=== PATIENT | male | born 1995 | race Caucasian/White ===

== ENCOUNTER 2020-05-16 17:47 | Emergency (ER) | payer OTHER, SELFPAY ==
--- NOTE | ~2020-05-16 | XR_ITS ---
XR finger 3rd RT min 2V 05/16/2020 18:16 Indication: Right third finger pain. Dog bite. Procedure: 4 views right third finger Comparison: No prior studies for comparison. Findings: There are small avulsion fracture fragments along the dorsal aspect of the distal interphal angeal joint. There is associated soft tissue swelling. Impression: 1: Avulsion fracture fragments dorsal aspect of the third distal interphalangeal joint, donor site no t identified. Reviewed, dictated and finalized at location A. T DAYCARE COORDINATOR Impression: 1: Avulsion fracture fragments dorsal aspect of the third distal interphalangea l joint, donor site not identified.
[2020-05-16 18:05] VITALS: BP 130/70; PULSE 94; RESP 18; TEMP 36.6; O2SAT 100
[2020-05-16 18:07] VITALS: BP 130/70; PULSE 94; RESP 18; TEMP 36.6; O2SAT 100
--- NOTE | 2020-05-16 18:35 | ED.UPPEXIN ---
HPI - Extremity Injury (Upper) General Chief Complaint: Extremity Injury, Upper Stated Complaint: finger inj Time Seen by Provider: 05/16/20 18:09 Source: patient and RN notes reviewed Mode of arrival: ambulatory Limitations: no limitations History of Present Illness HPI narrative: Patient presents today with an injury to his right third finger. He was giving his dog a treat when the treat slipped and the dog accidentally bit his finger approximately 1.5 hours prior to exam. Patient does report some numbness and tingling to the tip of the finger. Currently rates his pain 9/10. He is up-to-date on his tetanus vaccine. He has tried no medication for symptoms prior to arrival. States he is unable to fully straighten out his finger. Dog is up-to-date on vaccines. MD complaint: injury to: finger Related Data Allergies Allergy/AdvReac Type Severity Reaction Status Date / Time No Known Allergies Allergy Unknown Unverified 05/16/20 17:53 Review of Systems Review of Systems: Narrative: CONSTITUTIONAL: Denies body aches, fever, chills, or sweats. EYES: Denies visual changes, redness, or discharge. ENT: Denies rhinorrhea, congestion, sore throat, or otalgia. CARDIOVASCULAR: Denies chest pain, palpitations, or edema. RESPIRATORY: Denies cough or dyspnea. GASTROINTESTINAL: Denies abdominal pain, nausea, vomiting, or diarrhea. GENITOURINARY: Denies dysuria or hematuria. SKIN: Denies rash, itching, or wounds. MUSCULOSKELETAL: Denies back pain, or myalgia. + Right third finger injury NEUROLOGIC: Denies headache, numbness, tingling, or weakness. PSYCH: Denies depression or anxiety. PMFSH Comments At time of signature, I have reviewed and agree with nursing past medical, surgical, social and family history unless otherwise noted. Please see nursing chart for further information. There is no relevant family history pertinent to the presenting complaint Exam Narrative: Exam Narrative: GENERAL: Well-appearing, well-nourished, and in no acute distress. HEAD: Normocephalic, atraumatic. EYES: EOMI. No redness or drainage. Conjunctivae normal. ENT: Mucous membranes pink and moist. NECK: Normal AROM. CHEST: No respiratory distress. EXTREMITIES: Right third finger: 1.5 cm flap laceration to the dorsum of the right 3rd finger at the DIP. There is also a small puncture wound at the palmar aspect of the DIP. Patient is unable to extend the finger at the DIP. Distal sensation is slightly diminished to the affected finger. He is able to flex the finger. Capillary refill normal. SKIN: Warm, dry, no rash. Capillary refill normal. Normal skin turgor. NEURO: No focal deficits. Alert and oriented x3. Gait steady. PSYCH: Normal affect. No signs of depression or anxiety. Course Vital Signs Vital signs: Vital Signs Temperature 97.9 F 05/16/20 18:05 Pulse Rate 94 05/16/20 18:05 Respiratory Rate 18 05/16/20 18:05 Blood Pressure 130/70 05/16/20 18:05 Pulse Oximetry 100 05/16/20 18:05 Temperature 97.9 F 05/16/20 18:07 Pulse Rate 94 05/16/20 18:07 Respiratory Rate 18 05/16/20 18:07 Blood Pressure 130/70 05/16/20 18:07 Pulse Oximetry 100 05/16/20 18:07 Reviewed. Pt has been instructed to follow up with his PCP regarding his elevated blood pressure today. Procedures Orthopedic Splinting/Casting Injury #1: Splinting/Casting Date: 05/16/20 Splinting/Casting Time: 18:41 Side: right Upper Extremity Injury Location: finger Upper Extremity Immobilizer: aluminum form splint Splint: prefabricated Pre-Procedure Neuro Vascular Exam: normal (baseline upon arrival) Post-Procedure Neuro Vascular Exam: normal (baseline upon arrival) Additional Comments: wound dressed by RN prior to splinting. MDM - Extremity Injury (Upper) Differential Diagnosis Differential diagnosis: Likely other (Finger fracture, finger sprain, laceration, tendon laceration, puncture wou
== END 2020-05-16 18:52 | disposition home or self-care (01) ==
PROVIDERS: Emergency Provider Nurse Practitioner
DX: S61.212A Laceration without foreign body of right middle finger without damage to nail, initial encounter (principal); W54.0XXA Bitten by dog, initial encounter; S61.232A Puncture wound without foreign body of right middle finger without damage to nail, initial encounter; S62.632A Displaced fracture of distal phalanx of right middle finger, initial encounter for closed fracture
CPT/HCPCS: 29130; 73140; 99214; G0463

== ENCOUNTER 2020-06-29 17:54 | Emergency (ER) | payer OTHER, SELFPAY ==
--- NOTE | 2020-06-29 18:03 | ED.URI ---
HPI - URI/Sore Throat General Chief Complaint: Upper Respiratory Infection Stated Complaint: poss sinus infection Time Seen by Provider: 06/29/20 18:05 Source: patient and RN notes reviewed Mode of arrival: ambulatory Limitations: no limitations History of Present Illness HPI Narrative: 25-year-old male presents with concern for 3-week history of sinus congestion, drainage, headache. Reports she has been using [id number] nasal spray with decreasing amount of relief. He denies fever, cough, shortness of breath, sore throat, loss of taste and smell, known sick contacts. MD elicited complaint: nasal congestion Related Data Allergies Allergy/AdvReac Type Severity Reaction Status Date / Time No Known Allergies Allergy Unknown Verified 06/29/20 18:03 Review of Systems Review of Systems: Narrative: CONSTITUTIONAL: Denies malaise, chills, sweats, or fever. EYES: Denies visual changes, redness, or discharge. ENT: Reports rhinorrhea, congestion, sinus pain. Denies otalgia and sore throat. CARDIOVASCULAR: Denies chest pain, palpitations, or edema. RESPIRATORY: Denies cough or dyspnea. GASTROINTESTINAL: Denies abdominal pain, nausea, vomiting, diarrhea SKIN: Denies rash or itching. MUSCULOSKELETAL: Denies myalgia. NEUROLOGIC: Reports headache. All systems reviewed & are unremarkable except as noted in HPI and below PMFSH Social History Social History Gender identity (if verbalized by the patient): Male Comments At time of signature, agree with nursing past medical, surgical, social and family history. There is no relevant family history pertinent to the presenting complaint Exam Narrative: Exam Narrative: GENERAL: Well-appearing, well-nourished, and in no acute distress. HEAD: Normocephalic EYES: PERRLA, conjunctivae clear ENT: Nares clear, turbinates edematous and erythematous, purulent discharge, sinus tenderness. Mucous membranes moist. TM pearly bourgeois with dull light reflex bilaterally; no tragal tenderness. Oropharynx not erythematous without lesions. Tonsils not enlarged and without exudate, no drooling, no hoarseness, no trismus, uvula midline. NECK: Supple. No lymphadenopathy CHEST: Clear to auscultation, breath sounds equal. No wheezing, rhonchi, rales, or stridor. No respiratory distress, speaks in full sentences. HEART: Regular rate and rhythm. No murmur heard. SKIN: Warm, dry, no rash. NEURO: Alert and oriented x3. PSYCH: Normal mood and affect Course Course Emergency Course: Patient is aware of diagnosis, understands and agrees to treatment plan. Anticipatory guidance given. Patient agrees to follow-up as directed and is aware of reasons to seek care at the emergency department. Portions of this record may have been created with voice recognition software Vital Signs Vital signs: Vital Signs Temperature 97.3 F L 06/29/20 18:11 Pulse Rate 80 06/29/20 18:11 Respiratory Rate 16 06/29/20 18:11 Blood Pressure 119/67 06/29/20 18:11 Pulse Oximetry 98 06/29/20 18:11 Temperature 97.3 F L 06/29/20 18:11 Pulse Rate 80 06/29/20 18:11 Respiratory Rate 16 06/29/20 18:11 Blood Pressure 119/67 06/29/20 18:11 Pulse Oximetry 98 06/29/20 18:11 Reviewed. MDM - URI/Sore Throat MDM Narrative Medical decision making narrative: Differential diagnosis considered: Blanchard virus, strep pharyngitis, allergic rhinitis, upper respiratory tract infection, sinusitis, rhinosinusitis, nasopharyngitis. viral pharyngitis, otitis media, otitis externa, pneumonia, bronchitis, viral cough syndrome, viral syndrome, and influenza. Exam findings show no acute concerns or changes; patient is non-toxic appearing and is in no distress. Patient is appropriate for outpatient treatment and follow-up. Critical Care Time Critical Care Time Critical Care Time: No Discharge Plan Discharge Clinical Impression: Acute bacterial sinusitis Patient Disposition: Home, Self-Care Condition: Stable Instructions:
[2020-06-29 18:11] VITALS: BP 119/67; PULSE 80; RESP 16; TEMP 36.3; O2SAT 98
== END 2020-06-29 18:20 | disposition home or self-care (01) ==
PROVIDERS: Emergency Provider Nurse Practitioner
DX: J01.90 Acute sinusitis, unspecified (principal); F17.200 Nicotine dependence, unspecified, uncomplicated
CPT/HCPCS: 99213; G0463

== ENCOUNTER 2020-07-07 11:00 | Outpatient (CLI) | payer OTHER, SELFPAY ==
--- NOTE | ~2020-07-07 | XR_ITS ---
XR finger 3rd RT min 2V DATE: 07/07/2020 11:24 INDICATION: Osteomyelitis of third digit. Dog bite TECHNIQUE: 4 views COMPARISON: 05/16/2020 right third digit FINDINGS: There is soft tissue swelling of the third digit distally, centered at the distal interphal angeal joint. There is evidence of some bone destruction of the posteromedial aspect of the head of t he middle phalanx which may be consistent with osteomyelitis. There is flexion deformity at the dista l interphalangeal joint. IMPRESSION: Soft tissue swelling of the distal third digit and evidence of some focal bone destructio n of the posterior medial aspect of the head of the middle phalanx, which may indicate osteomyelitis. Flexion deformity at the distal interphalangeal joint Reviewed, dictated and finalized at location B. NIC SECTION TECHNICAL LEAD IMPRESSION: Soft tissue swelling of the distal third digit and evidence of some focal bone destruction of the posterior medial aspect of the head of the middl e phalanx, which may indicate osteomyelitis. Flexion deformity at the distal interphalangeal joint
== END 2020-07-07 11:01 | disposition home or self-care (01) ==
PROVIDERS: Visit Provider Plastic Surgery
DX: M86.141 Other acute osteomyelitis, right hand (principal); M79.89 Other specified soft tissue disorders; M21.241 Flexion deformity, right finger joints
CPT/HCPCS: 73140

== ENCOUNTER 2020-08-10 17:21 | Emergency (ER) | payer OTHER, SELFPAY ==
[2020-08-10 17:42] VITALS: BP 117/50; PULSE 87; RESP 16; TEMP 35.6; O2SAT 98
--- NOTE | 2020-08-10 17:43 | ED.URI ---
HPI - URI/Sore Throat General Chief Complaint: Upper Respiratory Infection Stated Complaint: sinus infection Time Seen by Provider: 08/10/20 17:43 Source: patient and RN notes reviewed History of Present Illness HPI Narrative: Patient is a 25-year-old male who presents the urgent care with complaints of head congestion/nasal congestion and sore throat. Patient also reports of a headache. States that he has been using ibuprofen, Sudafed, Flonase. Reports of using the Flonase multiple times throughout the day. Reports that his nasal congestion enhancing over the last 24 hours. Patient states symptoms started approximately 2 to 3 days ago. Denies of any known exposure to strep or Covid. No other acute complaints. No acute distress noted. Patient aware of the plan of care. Some parts of this dictation were generated by voice recognition software and may contain typographical and/or grammatical inaccuracies. Related Data Allergies Allergy/AdvReac Type Severity Reaction Status Date / Time No Known Allergies Allergy Unknown Verified 08/10/20 17:36 Review of Systems Review of Systems: Narrative: CONSTITUTIONAL: Denies fever, chills, or sweats. EYES: Denies visual changes, redness, or discharge. ENT: Reports of sore throat, nasal congestion, head congestion CARDIOVASCULAR: Denies chest pain, palpitations, or edema. RESPIRATORY: Denies cough or dyspnea. GASTROINTESTINAL: Denies abdominal pain, nausea, vomiting, or diarrhea. GENITOURINARY: Denies dysuria or hematuria. SKIN: Denies rash or itching. MUSCULOSKELETAL: Denies back pain, joint pain, or myalgia. NEUROLOGIC: Reports of headache All other systems reviewed are negative, except as documented in HPI. PMFSH Social History Social History Gender identity (if verbalized by the patient): Male Comments At the time of my signature, I reviewed and agree with the nursing past medical, surgical, social, and family history. There is no relevant family history pertinent to the patient complaint. Exam Narrative: Exam Narrative: GENERAL: This is a well-nourished, well-developed patient, in no apparent distress. HEAD: normocephalic, atraumatic. EYES: PERRL. Sclera clear/white. Vision is grossly intact. EARS: External ears normal, auditory canals clear and without drainage, TMs normal without perforation. Hearing grossly intact. NOSE: External nose normal with no obvious nasal discharge, moderate erythema noted to bilateral nares with clear to yellow rhinorrhea THROAT: Mucous membranes moist, mild erythema noted posterior oropharynx without exudate or ulceration. Notable what appears to be plant leaf to the roof of the mouth and on the tongue (patient reports that he smokes Dealt 8 which is a form of pot ) NECK: Neck supple, non-tender without lymphadenopathy CARDIOVASCULAR: Regular rate and rhythm without murmurs, gallops, or rubs. RESPIRATORY: Clear to auscultation. Breath sounds equal bilaterally. No wheezes, rales, or rhonchi. SKIN: warm, intact with no suspicious lesions or rash, good texture and turgor. NEURO: awake, alert, and oriented to person, place and time. There were no obvious focal neurologic abnormalities. EXTREMITIES: No clubbing, cyanosis, or edema. Course Vital Signs Vital signs: Vital Signs Temperature 96.1 F L 08/10/20 17:42 Pulse Rate 87 08/10/20 17:42 Respiratory Rate 16 08/10/20 17:42 Blood Pressure 117/50 L 08/10/20 17:42 Pulse Oximetry 98 08/10/20 17:42 Temperature 96.1 F L 08/10/20 17:42 Pulse Rate 87 08/10/20 17:42 Respiratory Rate 16 08/10/20 17:42 Blood Pressure 117/50 L 08/10/20 17:42 Pulse Oximetry 98 08/10/20 17:42 Reviewed MDM - URI/Sore Throat MDM Narrative Medical decision making narrative: Reviewed lab results with the patient. He is aware that strep swab was negative. Educated patient on culture we will call within 72 hours if culture is positive and antibiotics are necessary. Advised the patient to comp
== END 2020-08-10 18:07 | disposition home or self-care (01) ==
PROVIDERS: Emergency Provider Nurse Practitioner Family
DX: J32.9 Chronic sinusitis, unspecified (principal); J02.9 Acute pharyngitis, unspecified
CPT/HCPCS: 87081; 87880; 99213; G0463

== ENCOUNTER 2020-08-23 13:52 | Outpatient (CLI) | payer OTHER, SELFPAY ==
--- NOTE | ~2020-08-23 | XR_ITS ---
EXAMINATION: XR finger 3rd RT min 2V DATE: 08/23/2020 14:07 INDICATION: Osteomyelitis at the third distal interphalangeal joint post dogbite TECHNIQUE: Dorsal palmar, lateral and 2 oblique views of the right third digit were obtained COMPARISON: Right third digit radiographs dated 07/07/2020 and 05/16/2020 FINDINGS: Again seen is prominent soft tissue swelling dorsal to the third distal interphalangeal joint. There is a persistent mallet finger deformity of the third digit with flexion at the distal interphalangeal joint. There is joint space narrowing at the distal interphalangeal joint which is new since 020 an with slight progression since 07/07/2020 consistent with septic arthritis. There is increased l ucency at the dorsal aspect of the head of the middle phalanx and more subtly at the dorsal aspect of the base of the distal phalanx consistent with associated osteomyelitis. Remainder of the visualized bones of the right hand appear normal with normal alignment and joint spaces. IMPRESSION: 1. Septic arthritis at the third distal interphalangeal joint with focal osteolysis consistent with o steomyelitis at the dorsal aspect of the base of the distal phalanx and head of the middle phalanx. 2. Persistent mallet finger deformity suggesting disruption of the extensor tendon. Reviewed, dictated and finalized at location B. IMPRESSION: 1. Septic arthritis at the third distal interphalangeal joint with focal osteol ysis consistent with osteomyelitis at the dorsal aspect of the base of the dist al phalanx and head of the middle phalanx. 2. Persistent mallet finger deformity suggesting disruption of the extensor ten don.
== END 2020-08-23 13:53 | disposition home or self-care (01) ==
PROVIDERS: Visit Provider Plastic Surgery
DX: M86.141 Other acute osteomyelitis, right hand (principal)
CPT/HCPCS: 73140

== ENCOUNTER 2020-10-01 15:09 | Outpatient (CLI) | payer OTHER, SELFPAY ==
--- NOTE | ~2020-10-01 | XR_ITS ---
XR finger 3rd RT min 2V DATE: 10/01/2020 15:26 INDICATION: Osteomyelitis at distal interphalangeal joint; but by dog in April TECHNIQUE: 4 views COMPARISON: 08/23/2020, 07/07/2020 and 05/16/2020 right third digit FINDINGS: Again noted is joint space narrowing at the distal interphalangeal joint with erosions at t he dorsal aspect of the head of the middle phalanx and base of the distal phalanx consistent with adj acent osteomyelitis. Again noted is flexion deformity at the distal interphalangeal joint. There is m ild surrounding soft tissue swelling. IMPRESSION: Septic arthritis and osteomyelitis at the distal interphalangeal joint and mallet deformi ty again noted Reviewed, dictated and finalized at location A. IMPRESSION: Septic arthritis and osteomyelitis at the distal interphalangeal rissa int and mallet deformity again noted
== END 2020-10-01 15:10 | disposition home or self-care (01) ==
LOC: ANHIMG 15:14
PROVIDERS: Visit Provider Plastic Surgery
DX: M86.141 Other acute osteomyelitis, right hand (principal); M00.9 Pyogenic arthritis, unspecified
CPT/HCPCS: 73140

== ENCOUNTER 2020-12-07 13:18 | Emergency (ER) | payer OTHER, SELFPAY ==
[2020-12-07 13:28] VITALS: BP 111/65; PULSE 92; RESP 16; TEMP 36.4; O2SAT 100
--- NOTE | 2020-12-07 13:52 | ED.URI ---
HPI - URI/Sore Throat General Chief Complaint: Upper Respiratory Infection Stated Complaint: Sinus Problems Time Seen by Provider: 12/07/20 13:45 Source: patient and RN notes reviewed Mode of arrival: ambulatory Limitations: no limitations History of Present Illness HPI Narrative: 25-year-old male presents concern for worse sinus congestion. Reports chronic history of problems with his sinuses. Reports symptoms have been ongoing for more than a month, have worsened in the last several days. He reports sinus pain, pressure, drainage. He denies cough, shortness of breath, bodies, chills, sweats. MD elicited complaint: nasal congestion Related Data Allergies Allergy/AdvReac Type Severity Reaction Status Date / Time acetaminophen [From Tylenol] AdvReac Abdominal Verified 08/10/20 18:02 Pain Review of Systems Review of Systems: Narrative: CONSTITUTIONAL: Denies malaise, chills, sweats, or fever. EYES: Denies visual changes, redness, or discharge. ENT: Reports rhinorrhea, congestion, sinus pain. Denies otalgia and sore throat. CARDIOVASCULAR: Denies chest pain, palpitations, or edema. RESPIRATORY: Denies cough or dyspnea. GASTROINTESTINAL: Denies abdominal pain, nausea, vomiting, diarrhea SKIN: Denies rash or itching. MUSCULOSKELETAL: Denies myalgia. NEUROLOGIC: Denies headache. All systems reviewed & are unremarkable except as noted in HPI and below PMFSH Social History Social History Gender identity (if verbalized by the patient): Male Comments At time of signature, agree with nursing past medical, surgical, social and family history. There is no relevant family history pertinent to the presenting complaint Exam Narrative: Exam Narrative: GENERAL: Well-appearing, well-nourished, and in no acute distress. HEAD: Normocephalic EYES: PERRLA, conjunctivae clear ENT: Nares clear, turbinates edematous and erythematous, purulent discharge, sinus tenderness. Mucous membranes moist. TM pearly bourgeois with dull light reflex bilaterally; no tragal tenderness. Oropharynx not erythematous without lesions. Tonsils not enlarged and without exudate, no drooling, no hoarseness, no trismus, uvula midline. NECK: Supple. No lymphadenopathy CHEST: Clear to auscultation, breath sounds equal. No wheezing, rhonchi, rales, or stridor. No respiratory distress, speaks in full sentences. HEART: Regular rate and rhythm. No murmur heard. SKIN: Warm, dry, no rash. NEURO: Alert and oriented x3. PSYCH: Normal mood and affect Course Course Emergency Course: Patient is aware of diagnosis, understands and agrees to treatment plan. Anticipatory guidance given. Patient agrees to follow-up as directed and is aware of reasons to seek care at the emergency department. Portions of this record may have been created with voice recognition software Vital Signs Vital signs: Vital Signs Temperature 97.5 F L 12/07/20 13:28 Pulse Rate 92 12/07/20 13:28 Respiratory Rate 16 12/07/20 13:28 Blood Pressure 111/65 12/07/20 13:28 Pulse Oximetry 100 12/07/20 13:28 Temperature 97.5 F L 12/07/20 13:28 Pulse Rate 92 12/07/20 13:28 Respiratory Rate 16 12/07/20 13:28 Blood Pressure 111/65 12/07/20 13:28 Pulse Oximetry 100 12/07/20 13:28 Reviewed. MDM - URI/Sore Throat MDM Narrative Medical decision making narrative: Differential diagnosis considered: Blanchard virus, strep pharyngitis, allergic rhinitis, upper respiratory tract infection, sinusitis, rhinosinusitis, nasopharyngitis. viral pharyngitis, otitis media, otitis externa, pneumonia, bronchitis, viral cough syndrome, viral syndrome, and influenza. Exam findings show no acute concerns or changes; patient is non-toxic appearing and is in no distress. Patient is appropriate for outpatient treatment and follow-up. Critical Care Time Critical Care Time Critical Care Time: No Discharge Plan Discharge Clinical Impression: Chronic sinusitis Qualifiers: Sinusitis location: unspecifi
== END 2020-12-07 14:08 | disposition home or self-care (01) ==
PROVIDERS: Emergency Provider Nurse Practitioner
DX: J32.9 Chronic sinusitis, unspecified (principal); F41.9 Anxiety disorder, unspecified
CPT/HCPCS: 99213; G0463

== ENCOUNTER 2020-12-14 12:02 | Emergency (ER) | payer OTHER, SELFPAY ==
[2020-12-14 12:11] VITALS: BP 132/68; PULSE 87; RESP 16; TEMP 36.3; O2SAT 99
--- NOTE | 2020-12-14 12:50 | ED.GENADULT ---
HPI - General Adult General Chief complaint: Upper Respiratory Infection Stated complaint: SORE THROAT Time Seen by Provider: 12/14/20 12:38 Source: patient and RN notes reviewed Mode of arrival: ambulatory Limitations: no limitations History of Present Illness HPI narrative: Patient presents today requesting a COVID-19 test. His girlfriend, whom he lives with, was diagnosed with COVID-19 3 days ago. Patient went to [facility] today for rapid Covid test, which was negative. He believes that this was a false negative and wanted to come in to [facility] today to get a repeat rapid test. Patient is currently on doxycycline and prednisone for presumed sinus infection that was prescribed by the nurse practitioner from [facility] on 12/07/2020. States those symptoms have been improving. He and his girlfriend have not been vaccinated against COVID-19. complaint: Requesting COVID-19 test Related Data Allergies Allergy/AdvReac Type Severity Reaction Status Date / Time acetaminophen [From Tylenol] AdvReac Abdominal Verified 12/14/20 12:27 Pain Review of Systems Review of Systems: Narrative: CONSTITUTIONAL: Denies body aches, fever, chills, or sweats. EYES: Denies visual changes, redness, or discharge. ENT: Denies rhinorrhea, congestion, sore throat, or otalgia. CARDIOVASCULAR: Denies chest pain, palpitations, or edema. RESPIRATORY: Denies cough or dyspnea. GASTROINTESTINAL: Denies abdominal pain, nausea, vomiting, or diarrhea. GENITOURINARY: Denies dysuria or hematuria. SKIN: Denies rash, itching, or wounds. MUSCULOSKELETAL: Denies back pain, joint pain, or myalgia. NEUROLOGIC: Denies headache, numbness, tingling, or weakness. PSYCH: Denies depression or anxiety. PMFSH Social History Social History Gender identity (if verbalized by the patient): Male Comments At time of signature, I have reviewed and agree with nursing past medical, surgical, social and family history unless otherwise noted. Please see nursing chart for further information. There is no relevant family history pertinent to the presenting complaint Exam Narrative: Exam Narrative: GENERAL: Well-appearing, well-nourished, and in no acute distress. HEAD: Normocephalic, atraumatic. EYES: EOMI. No redness or drainage. Conjunctivae normal. ENT: Mucous membranes pink and moist. Nares clear. No rhinorrhea. TMs normal bilaterally. Throat normal. Uvula midline. NECK: Normal AROM. Supple. No lymphadenopathy. CHEST: No respiratory distress. Clear to auscultation. HEART: Regular rate and rhythm. No murmur appreciated. Normal peripheral pulses. EXTREMITIES: Normal range of motion. No edema. SKIN: Warm, dry, no rash. Capillary refill normal. Normal skin turgor. NEURO: No focal deficits. Alert and oriented x3. Gait steady. PSYCH: Normal affect. No signs of depression or anxiety. Course Course Emergency Course: Discussed quarantine guidelines with patient. He is concerned that he needs a note for work to quarantine. Will provide for him. Vital Signs Vital signs: Vital Signs Temperature 97.3 F L 12/14/20 12:11 Pulse Rate 87 12/14/20 12:11 Respiratory Rate 16 12/14/20 12:11 Blood Pressure 132/68 12/14/20 12:11 Pulse Oximetry 99 12/14/20 12:11 Temperature 97.3 F L 12/14/20 12:11 Pulse Rate 87 12/14/20 12:11 Respiratory Rate 16 12/14/20 12:11 Blood Pressure 132/68 12/14/20 12:11 Pulse Oximetry 99 12/14/20 12:11 Reviewed. Pt has been instructed to follow up with his PCP regarding his elevated blood pressure today. Medical Decision Making Differential Diagnosis Differential Diagnosis: COVID-19, viral syndrome, requesting work note Vital Signs Vital Signs: Vital Signs Temperature 97.3 F L 12/14/20 12:11 Pulse Rate 87 12/14/20 12:11 Respiratory Rate 16 12/14/20 12:11 Blood Pressure 132/68 12/14/20 12:11 Pulse Oximetry 99 12/14/20 12:11 Temperature 97.3 F L 12/14/20 12:11 Pulse Rate 87 /
== END 2020-12-14 15:00 | disposition home or self-care (01) ==
PROVIDERS: Emergency Provider Nurse Practitioner
DX: Z20.822 Contact with and (suspected) exposure to COVID-19 (principal); F17.200 Nicotine dependence, unspecified, uncomplicated
CPT/HCPCS: 99211; G0463

== ENCOUNTER 2021-01-03 08:29 | Emergency (ER) | payer OTHER, SELFPAY ==
--- NOTE | ~2021-01-03 | CT_ITS ---
EXAMINATION: CT brain wo con DATE: 01/03/2021 09:34 INDICATION: Head injury. TECHNIQUE: Computed tomography (CT) of the head was performed without intravenous contrast. The mA wa s adjusted according to patient size. Iterative reconstruction technique was employed. The dose-lengt h product was 605.33 mGy-cm. COMPARISON: Head CT 07/04/2014 FINDINGS: There is no intracranial hemorrhage, acute infarction, or abnormal intracranial mass lesion . The ventricles are normal in size. Cavum septum pellucidum is noted. The orbits are normal. There i s mucosal thickening in the paranasal sinuses. The mastoid air cells are normal. There is posterior s calp soft tissue swelling. IMPRESSION: 1. Normal brain. Reviewed, dictated and finalized at location B. IMPRESSION: 1. Normal brain.
--- NOTE | ~2021-01-03 | CT_ITS ---
EXAMINATION: CT cervical spine wo con DATE: 01/03/2021 09:34 INDICATION: Neck injury. Neck pain. TECHNIQUE: Computed tomography (CT) of the cervical spine was performed without intravenous contrast. Automated exposure control and iterative reconstruction technique were employed. The dose-length pro duct was 399.13 mGy-cm. COMPARISON: None FINDINGS: There is mild scarring at the lung apices. Bone alignment is normal. Vertebral body heights and intervertebral disc heights are normal. The following disc levels are specifically discussed: C2-C3: There is no uncovertebral joint osteoarthritis. There is mild bilateral facet joint osteoarthr itis. There is no neural foraminal stenosis. There is no central canal stenosis. C3-C4: There is no uncovertebral joint osteoarthritis. There is mild bilateral facet joint osteoarthr itis. There is no neural foraminal stenosis. There is no central canal stenosis. C4-C5: There is no uncovertebral joint osteoarthritis. There is no facet joint osteoarthritis. There is no neural foraminal stenosis. There is no central canal stenosis. C5-C6: There is no uncovertebral joint osteoarthritis. There is no facet joint osteoarthritis. There is no neural foraminal stenosis. There is no central canal stenosis. C6-C7: There is no uncovertebral joint osteoarthritis. There is mild right facet joint osteoarthritis . There is no neural foraminal stenosis. There is no central canal stenosis. C7-T1: There is no uncovertebral joint osteoarthritis. There is moderate bilateral facet joint osteoa rthritis. There is no neural foraminal stenosis. There is no central canal stenosis. IMPRESSION: 1. No fracture. 2. Multilevel facet joint osteoarthritis. Reviewed, dictated and finalized at location B.
--- NOTE | ~2021-01-03 | XR_ITS ---
EXAMINATION: XR lumbar spine 2-3V DATE: 01/03/2021 09:52 INDICATION: Low back injury and pain. TECHNIQUE: 3 views of lumbar spine were obtained. COMPARISON: None. FINDINGS: There is 14 degrees dextroscoliosis of lumbar spine. Vertebral body heights and interverteb ral disc heights are normal. The facet joints are unremarkable. IMPRESSION: 1. Lumbar dextroscoliosis. Reviewed, dictated and finalized at location B. IMPRESSION: 1. Lumbar dextroscoliosis.
--- NOTE | ~2021-01-03 | XR_ITS ---
EXAMINATION: XR thoracic spine 3V DATE: 01/03/2021 09:51 INDICATION: Mid back injury and pain. TECHNIQUE: 3 views of thoracic spine on 4 radiographs were obtained. COMPARISON: None. FINDINGS: Bone alignment is normal. Vertebral body heights and intervertebral disc heights are normal . IMPRESSION: 1. No fracture. Reviewed, dictated and finalized at location B. IMPRESSION: 1. No fracture.
--- NOTE | ~2021-01-03 | XR_ITS ---
EXAMINATION: XR chest 2V DATE: 01/03/2021 09:51 INDICATION: Chest injury. TECHNIQUE: Frontal and lateral views of the chest were obtained. COMPARISON: Chest 2 views 05/06/2013 FINDINGS: The chest demonstrates clear lungs without pneumonia, pleural effusion, or pneumothorax. Th e heart size is normal. IMPRESSION: 1. No acute cardiopulmonary disease. Reviewed, dictated and finalized at location B.
--- NOTE | ~2021-01-03 | XR_ITS ---
EXAMINATION: XR pelvis 1-2V DATE: 01/03/2021 09:50 INDICATION: Pelvis injury. TECHNIQUE: An anteroposterior view of the pelvis was obtained. COMPARISON: None. FINDINGS: Bone alignment is normal. No fracture. There is mild osteoarthritis of the hips. IMPRESSION: 1. Mild osteoarthritis of the hips. Reviewed, dictated and finalized at location B.
[2021-01-03 08:35] VITALS: BP 103/65; PULSE 80; RESP 16; TEMP 37.2; O2SAT 97
--- NOTE | 2021-01-03 09:06 | ED.FALL ---
HPI - Fall General Chief Complaint: Fall Stated Complaint: skateboard accident, head injury Time Seen by Provider: 01/03/21 08:56 Source: patient, family and RN notes reviewed Mode of arrival: ambulatory Limitations: no limitations History of Present Illness HPI Narrative: Patient is 25 years old white male came from home with his mom complaining of occipital pain and tailbone pain started yesterday around 12 noon after falling off his skateboard. No helmet. No loss of consciousness, woke up this morning with pain all over mainly at the occipital area and the tailbone area. Patient denies chest pain or abdominal pain. Also denies any fever, chills, nausea, vomiting Related Data Home Medications Medication Instructions Recorded Confirmed No Home Medications 01/03/21 01/03/21 Allergies Allergy/AdvReac Type Severity Reaction Status Date / Time No Known Allergies Allergy Verified 01/03/21 08:31 Review of Systems Review of Systems: CONSTITUTIONAL: Denies fever, chills, or sweats. EYES: Denies visual changes, redness, or discharge. ENT: Denies rhinorrhea, congestion, sore throat, or otalgia. CARDIOVASCULAR: Denies chest pain, palpitations, or edema. RESPIRATORY: Denies cough or dyspnea. GASTROINTESTINAL: Denies abdominal pain, nausea, vomiting, or diarrhea. GENITOURINARY: Denies dysuria or hematuria. SKIN: Denies rash or itching. MUSCULOSKELETAL: Denies back pain, joint pain, or myalgia. NEUROLOGIC: Denies headache, numbness, or weakness. PSYCHIATRIC: Denies anxiety or depression. [facility] Social History Social History Gender identity (if verbalized by the patient): Male Exam Narrative: General appearance: Well-developed, well-nourished, looks in pain Skin: Normal color Head: Normocephalic, occipital tenderness with abrasion. No active bleeding, no hematoma Eyes: Clear conjunctiva ENT: Oropharynx normal, ears normal, nose normal Neck: Slight limited range of motion, diffuse tenderness Chest and respiratory: Airway patent, no respiratory distress, no accessory muscle use Heart: Regular rate/rhythm Abdomen: Soft, nontender, no organomegaly, quiet bowel sounds Vascular: Normal peripheral pulses, normal capillary refill. Musculoskeletal: Limited range of motion all over including upper and lower extremities, back, neck. Neurologic: Alert and oriented ?3, [employer] BLASTING is normal as tested, no gross motor deficit Course Course Emergency Course: Stable Vital Signs Vital signs: Vital Signs Temperature 37.2 C 01/03/21 08:35 Pulse Rate 80 01/03/21 08:35 Respiratory Rate 16 01/03/21 08:35 Blood Pressure 103/65 01/03/21 08:35 Pulse Oximetry 97 01/03/21 08:35 Temperature 37.2 C 01/03/21 08:35 Pulse Rate 80 01/03/21 08:35 Respiratory Rate 16 01/03/21 08:35 Blood Pressure 103/65 01/03/21 08:35 Pulse Oximetry 97 01/03/21 08:35 MDM - Fall MDM Narrative Medical decision making narrative: Patient presents with skateboard injury [address] head, cervical spine, x-ray thoracic lumbar pelvis and chest x-ray ordered. Ibuprofen 800 mg and [place] 5/325 mg ordered. Further plan Differential Diagnosis Differential diagnosis: Likely compression fracture, concussion without loss of consciousness and other (Skull fracture, vertebral fracture) Imaging Data Radiologist's impression: Impressions Head CT 01/03/21 09:34 IMPRESSION: 1. Normal brain. Cervical Spine CT 01/03/21 09:35 IMPRESSION: 1. No fracture. 2. Multilevel facet joint osteoarthritis. Pelvis X-Ray 01/03/21 09:54 IMPRESSION: 1. Mild osteoarthritis of the hips. Thoracic Spine X-
[2021-01-03] MEDS: HYDROcodone/acetaminophen (*CRX) 5-325 MG TABLET 1 TAB PO (09:21)
[2021-01-03] MEDS: IBUPROFEN 400 MG TABLET 800 MG PO (09:22)
--- NOTE | 2021-01-03 10:29 | PC.NURSE ---
pt parent out to nurse's station, my son is in pain. whatever you gave him isn't helping. EDP made aware.
--- NOTE | 2021-01-03 11:00 | PC.NURSE ---
pt continues to c/o pain 02/27. overheard pt tell family that he needs some dilaudid for pain.
[2021-01-03 11:27] VITALS: RESP 16
== END 2021-01-03 11:27 | disposition home or self-care (01) ==
PROVIDERS: Emergency Provider Emergency Medicine
DX: S09.90XA Unspecified injury of head, initial encounter (principal); S30.0XXA Contusion of lower back and pelvis, initial encounter; M47.812 Spondylosis without myelopathy or radiculopathy, cervical region; M16.0 Bilateral primary osteoarthritis of hip; V00.131A Fall from skateboard, initial encounter; Y93.51 Activity, roller skating (inline) and skateboarding
CPT/HCPCS: 70450; 71046; 72072; 72100; 72125; 72170; 99284; A9270

== ENCOUNTER 2021-03-09 12:45 | Emergency (ER) | payer MEDICAID, SELFPAY ==
[2021-03-09 13:01] VITALS: BP 133/85; PULSE 84; RESP 16; TEMP 36.3; O2SAT 100
[2021-03-09 13:22] LABS: Basophils Absolute Auto 0.1 K/mm3 (0.0-0.1); Basophils Percent Auto 0.9 % (0.2-1.2); Eosinophils Absolute Auto 0.1 K/mm3 (0-0.3); Eosinophils Percent Auto 0.9 % (0-4.4); Hematocrit 40.8 % (42.0-52.0); Immature Granulocyte Absolute 0.02 K/mm3 (0.00-0.031); Immature Granulocyte Percent A 0.3 % (0-0.5); Lymphocytes Percent Auto 22.9 % (18.3-44.2); Mean Corpuscular HGB Conc 34.3 g/dl (32-36); Mean Corpuscular Hemoglobin 29.5 pg (26-34); Mean Corpuscular Volume 85.9 fl (80-100); Mean Platelet Volume 9.1 fl (7.4-10.4); Monocytes Absolute Auto 0.5 K/mm3 (0.1-0.6); Neutrophils Absolute Auto 4.4 K/mm3 (1.3-6.7); Platelet Count Result 271 k/mm3 (150-375); Red Blood Count 4.75 M/mm3 (4.6-6.20); Red Cell Distribution Width 13.2 % (11.5-14.5); White Blood Count 6.5 K/mm3 (4.5-10.0)
[2021-03-09 13:37] LABS: Ethanol < 10 mg/dL (<10)
[2021-03-09 13:38] LABS: Alanine Aminotransferase 36 U/L (4-50); Albumin Level 4.9 g/dL (3.5-5.1); Alkaline Phosphatase 87 U/L (38-126); Anion Gap 10 mmol/L (8-16); Aspartate Amino Transferase 41 U/L (17-59); Blood Urea Nitrogen 10 mg/dL (9-20); Calcium 9.6 mg/dL (8.4-10.2); Carbon Dioxide 30 mmol/L (22-30); Chloride 102 mmol/L (98-107); Estimated CRCL calculation 111 ml/min; Estimated Glomerular Filt Rate > 60; Glucose 105 mg/dL (65-110); Potassium 4.3 mmol/L (3.4-5.0); Sodium 142 mmol/L (137-145)
[2021-03-09 13:49] LABS: Add Urine Microscopic? YES; Appearance Urine Cloudy (Clear); Bacteria Urine Trace /hpf; Bilirubin Urine Negative (Negative); Blood Urine Negative (Negative); Color Urine Yellow (Yellow); Glucose Urine UA Negative (Negative); Ketones Urine Negative (Negative); Leukocyte Esterase Ur Negative LEU/UL (Negative); Mucus Urine Rare /lpf; Nitrate Urine Negative (Negative); Protein Urine 1+ mg/dL (Negative); Specific Grav Ur 1.019 (1.001-1.035); Squamous Epithelial Cell Urine Rare /hpf (Few); Urobilinogen Urine Negative mg/dL (<2.0)
[2021-03-09 13:59] LABS: Amphetamine Screen Urine Negative (Negative); Barbiturate Screen Urine Negative (Negative); Benzodiazepines Screen Urine Positive (Negative); Cannabinoid Screen Urine Negative (Negative); Cocaine Screen Urine Negative (Negative); Methadone Screen Urine Negative (Negative); Opiate Screen Urine Negative (Negative); Phencyclidine Screen Urine Negative (Negative)
[2021-03-09 14:16] VITALS: BP 145/90; PULSE 77; RESP 14; O2SAT 100
[2021-03-09 14:20] VITALS: PULSE 80; RESP 14
--- NOTE | 2021-03-09 14:43 | ED.GENADULT ---
HPI - General Adult General Chief complaint: Unspecified Stated complaint: withdrawl symptoms Time Seen by Provider: 03/09/21 14:14 Source: patient and RN notes reviewed Mode of arrival: ambulatory Limitations: no limitations History of Present Illness HPI narrative: This is a 25 year old male with history of anxiety who presents for evaluation of drug withdrawal. Patient states he has been taking Kratom for 3 years to treat his anxiety. He states he tried to stop 1 month ago but he started having withdrawal symptoms so he started taking again. He stopped taking Kratom 4 days ago again. He developed increased anxiety, diarrhea and body aches 2 days ago. He states his anxiety does seem to be improving. He also reports frequent diarrhea but denies nausea, vomiting or abdominal pain. He reports feeling hot and cold but denies measured fever. Related Data Home Medications Medication Instructions Recorded Confirmed No Home Medications 01/03/21 01/03/21 Allergies Allergy/AdvReac Type Severity Reaction Status Date / Time No Known Allergies Allergy Verified 01/03/21 08:31 Review of Systems Review of Systems: All systems reviewed & are unremarkable except as noted in HPI and below PMFSH Past Medical History Medical History (Updated 03/09/21 @ 16:50 by Jesi Parekh MD) Anxiety Social History Social History (Updated 03/09/21 @ 14:50 by Jesi Parekh MD) Smoking status: Former smoker Alcohol intake: current Substance use type: opiates Other substance usage details: kratom Gender identity (if verbalized by the patient): Male Exam Narrative: GENERAL: Well-appearing, well-nourished, and in no acute distress. HEAD: Normocephalic, atraumatic EYES: PERRLA and EOMI, conjunctiva clear without discharge THROAT:Mucous membranes moist, Oropharynx normal without erythema, exudate, peritonsillar swelling or fluctuance NECK: Supple, without lymphadenopathy or mass RESPIRATORY: No respiratory distress, Airway patent, Respirations non-labored, Clear to auscultation without rales, rhonchi or wheeze HEART: Regular rate and rhythm. No murmur heard. Normal peripheral pulses. ABDOMEN: Soft, nontender, nondistended, normal active bowel sounds. No masses. No rebound or guarding, No organomegaly. EXTREMITIES: No edema, normal strength with full range of motion. SKIN: Warm, dry, normal color without rash NEURO: Alert and oriented x3. CN 2-12 grossly intact. No focal deficits. PSYCH: Normal mood and affect. Course Reevaluation(s) Reevaluation #1: Patient walked out of ER without notifying anyone. Date: 03/09/21 Time: 15:00 Vital Signs Vital signs: Vital Signs Temperature 97.4 F L 03/09/21 13:01 Pulse Rate 84 03/09/21 13:01 Respiratory Rate 16 03/09/21 13:01 Blood Pressure 133/85 03/09/21 13:01 Pulse Oximetry 100 03/09/21 13:01 Temperature 97.4 F L 03/09/21 13:01 Pulse Rate 80 03/09/21 14:20 Respiratory Rate 14 03/09/21 14:20 Blood Pressure 145/90 H 03/09/21 14:16 Pulse Oximetry 100 03/09/21 14:16 Medical Decision Making Vital Signs Vital Signs: Vital Signs Temperature 97.4 F L 03/09/21 13:01 Pulse Rate 84 03/09/21 13:01 Respiratory Rate 16 03/09/21 13:01 Blood Pressure 133/85 03/09/21 13:01 Pulse Oximetry 100 03/09/21 13:01 Temperature 97.4 F L 03/09/21 13:01 Pulse Rate 80 03/09/21 14:20 Respiratory Rate 14 03/09/21 14:20 Blood Pressure 145/90 H 03/09/21 14:16 Pulse Oximetry 100 03/09/21 14:16 Lab Data Lab results reviewed: Yes I reviewed the patient's lab results. Result diagrams: 03/09/21 13:14 03/09/21 13:14 Labs: Lab Results 03/09/21 03/09/21 03/09/21 Range/Units 13:14 13:14 13:14 WBC 6.5 (4.5-10.0) K/mm3 RBC 4.75 (4.6-6.20) M/mm3 Hgb 14.0 (14.0-18.0) g/dL Hct 40.8 L (42.0-52.0) % MCV 85.9 (80-100) fl MCH 29.5 (26-34) pg MCHC 34.3
--- NOTE | 2021-03-09 15:07 | PC.NURSE ---
Pt walking down the hallway towards exit. Asked if he was leaving. Pt did not answer and continued to leave department. EDP notified.
== END 2021-03-09 15:08 | disposition left against medical advice (07) ==
PROVIDERS: Emergency Provider General Practice
DX: F19.239 Other psychoactive substance dependence with withdrawal, unspecified (principal)
CPT/HCPCS: 36415; 80053; 80307; 81001; 84443; 85025; 99283

== ENCOUNTER 2022-10-03 20:04 | Emergency (ER) | payer OTHER, SELFPAY ==
[2022-10-03 20:08] VITALS: BP 117/66; PULSE 82; RESP 14; TEMP 36.7; O2SAT 97
--- NOTE | 2022-10-03 20:24 | PC.NURSE ---
Pt states his mother in July and he hasn't been coping. States this was his first mother's day without his mom and has been drinking heavily. He asked that I call his girlfriend Wanda. Wanda states He needs some help. He's homeless and he's been trying to come around but he's in psychosis or something. He has nowhere to go and he just really needs some help . Pt has approx 2cm laceration to palm of his hand that appears to be 1-2 days old.
--- NOTE | 2022-10-03 20:32 | PC.NURSE ---
Pt is belligerent and yelling. This RN instructed pt that he needs to keep his voice down or security will be called. He also continues to try and talk to the patient in room 5 and has tried to unbutton the curtain between them. computer operations analyst notified that pt needs to be moved to a private room.
[2022-10-03] MEDS: LORazepam INJ (*CRX) 2 MG/ML VIAL IM (20:46)
[2022-10-03] MEDS: HALOPERIDOL LACTATE 5 MG/ML VIAL IM (20:46)
[2022-10-03] MEDS: SODIUM CHLORIDE 0.9% IV 2,000 ML 999 ML IV CONT (20:59)
--- NOTE | 2022-10-03 21:14 | ED.GENADULT ---
HPI - General Adult General Chief complaint: Wound/Laceration Stated complaint: right hand laceration-over 24hrs old Time Seen by Provider: 10/03/22 20:19 History of Present Illness HPI narrative: This is a 27-year-old male brought in the hospital brought in by police for being intoxicated. Patient was in [place] when police were called. At this time patient says he has been drinking heavily Using drugsfor the last 2 days. He has a cut on his right hand that he sustained last night although it appears it may be older than that. Patient has a history of IV drug abuse but has a subcutaneous naltrexone pellet in his abdomen. patient is too intoxicated to provide much useful history. Related Data Allergies Allergy/AdvReac Type Severity Reaction Status Date / Time No Known Allergies Allergy Verified 10/03/22 20:05 [facility] Past Medical History Medical History Anxiety IV drug abuse Polysubstance use disorder Social History Social History Smoking status: Former smoker Alcohol intake: current Substance use type: opiates Other substance usage details: marga Gender identity (if verbalized by the patient): Male Exam Narrative: APPEARANCE: patient is disheveled, he is slurring his speech. Head: atraumatic. EYES: EOMI, NOSE: Atraumatic NECK: Trachea midline RESPIRATORY: No increased rate of breathing, CTAB CARDIOVASCULAR: RRR, ABDOMINAL: Non-distended MUSCULOSKELETAl: exam of the right hand reveals a 2 cm laceration over the base of the 3rd finger. Flexion and extension are intact. There is no involvement of the flexor ligament. The wound has been open for >24 hrs and is not amenable to suture repair. NEURO: Alert. Moving 4/4 extremities SKIN:: Warm, dry. Normal color PSYCHIATRIC: Normal affect Course Vital Signs Vital signs: Vital Signs Temperature 98.1 F 10/03/22 20:08 Pulse Rate 82 10/03/22 20:08 Respiratory Rate 14 10/03/22 20:08 Blood Pressure 117/66 10/03/22 20:08 Pulse Oximetry 97 10/03/22 20:08 Oxygen Delivery Room Air 10/03/22 20:08 Temperature 98.1 F 10/03/22 20:08 Pulse Rate 64 10/03/22 23:36 Respiratory Rate 14 10/03/22 23:36 Blood Pressure 117/66 10/03/22 20:08 Pulse Oximetry 96 10/03/22 23:36 Oxygen Delivery Room Air 10/03/22 20:08 Medical Decision Making MDM Narrative Medical decision making narrative: -Presentation: 27-year-old male polysubstance use disorder presenting intoxicated to the ED. Patient was disruptive to other patients and using foul language with staff. He is too intoxicated to discharge. Patient will be given Haldol and Ativan for sedation. He has an old laceration on his hand that has been open for greater than 24 hours. He will be given IV Ancef and the wound will be clearing and but will have to heal by secondary intention. -DDX includes but is not limited to: Alcohol intoxication, meth use, laceration, psychiatric illness -Co-morbidities complicating care: polysubstance use disorder -Social determinants of health: patient works different jobs in construction lives with his . -External Chart Review: Review of previous ER notes for withdrawal. -Hx from independent Sources: Brother -Discussion of Management/Consultants: none -Independent interpretation of studies: alcohol was 192. Dx tests considered but not ordered: None -Procedures: none -Interventions: 2 g Ancef, 2 L normal saline, 5 mg Haldol, 2 mg Ativan -Shared decision making / Disposition: patient was monitored for several hours. Patient's brother has come in to take him home. The patient's hand wound has been cleaned. the patient will be discharged on Keflex with plastics follow-up. -RX keflex 500 mg QID x 7 days Vital Signs Vital Signs: Vital Signs Temperature 98.1 F 10/03/22 20:08 Pulse Rate
[2022-10-03 21:20] LABS: Ethanol 192 mg/dL (<10)
--- NOTE | 2022-10-03 22:26 | PC.NURSE ---
Pt's older brother Austin ([phone]) called. This RN informed him that pt was brought in by PD, but not sure where pt was picked up from. Brother states pt and their mother used drugs together and pt's mother from an overdose in July and pt has been in a downward spiral since then. Informed brother that pt is safe, but he was drunk and agitated so he was given some medications to calm him down and is currently asleep. Brother is requesting a urine drug screen to show to the suboxone clinic in [place]. Dr. Rao notified.
[2022-10-03] MEDS: ceFAZolin 2 GM/D5W 50 ML 2 GM/50 ML BAG IVPB (22:48)
[2022-10-03 23:36] VITALS: PULSE 64; RESP 14; O2SAT 96
[2022-10-04] MEDS: NICOTINE (*PBKC) 21 MG PATCH 1 PATCH TRANSDERM (00:50)
--- NOTE | 2022-10-04 00:50 | PC.NURSE ---
Laceration to right hand irrigated with 100ml sterile saline and cleaned with betadine swabs.
[2022-10-04 00:54] VITALS: BP 119/78; PULSE 70; RESP 16; O2SAT 98
[2022-10-04 01:28] LABS: Amphetamine Screen Urine Negative (Negative); Barbiturate Screen Urine Negative (Negative); Benzodiazepines Screen Urine Positive (Negative); Cannabinoid Screen Urine Negative (Negative); Cocaine Screen Urine Negative (Negative); Methadone Screen Urine Negative (Negative); Opiate Screen Urine Negative (Negative); Phencyclidine Screen Urine Negative (Negative)
[2022-10-04 01:55] VITALS: BP 114/81; PULSE 70; RESP 16; O2SAT 99
== END 2022-10-04 01:57 | disposition home or self-care (01) ==
PROVIDERS: Emergency Provider Emergency Medicine
DX: F10.129 Alcohol abuse with intoxication, unspecified (principal); F19.10 Other psychoactive substance abuse, uncomplicated; S61.411A Laceration without foreign body of right hand, initial encounter; Z87.891 Personal history of nicotine dependence; X58.XXXA Exposure to other specified factors, initial encounter; Y90.6 Blood alcohol level of 120-199 mg/100 ml
CPT/HCPCS: 36415; 80307; 96361; 96365; 96372; 99284; A9270; J0690; J1630; J2060; J7030

== ENCOUNTER 2022-11-24 01:00 | Emergency (ER) | payer OTHER, SELFPAY ==
--- NOTE | ~2022-11-24 | CT_ITS ---
Non-contrast Head CT History: Status post fall COMPARISON: 01/03/2021 Technique: Axial non-contrast imaging of the brain was performed. Dose reduction technique was used on this scan by utilizing automated exposure control and iterative reconstruction technique. The dose -length product (DLP) was 605.33 mGy-cm. Findings: There is no evidence of intracranial hemorrhage, mass lesion, or acute infarct. Brain par enchyma appears normal. The ventricles and subarachnoid spaces are normal in size. The calvarium ap pears normal. The visualized paranasal sinuses and mastoid air cells are clear. Impression: No significant abnormality seen. Reviewed, dictated and finalized at location . Impression: No significant abnormality seen.
--- NOTE | ~2022-11-24 | CT_ITS ---
CT Facial Bones and Cervical Spine Clinical Indication: Status post fall Technique: Contiguous axial scans were obtained through the facial bones and cervical spine followed by coronal and sagittal reconstructions. Dose reduction technique was used on this scan by utilizing automated exposure control and iterative reconstruction technique. The dose-length product (DLP) was 514.14 mGy-cm. Findings: CT facial bones: No fractures are identified. There is mild right maxillary sinus disease. The remain ing visualized paranasal sinuses are clear. Intraorbital soft tissues appear normal. CT cervical spine: No fractures or subluxation. Unremarkable visualized bony structures. The interv ertebral disc spaces are preserved. No prevertebral soft tissue swelling. Impression: No fracture is seen in the facial bones. No fracture or subluxation of the cervical spine. Reviewed, dictated and finalized at location . Impression: No fracture is seen in the facial bones. No fracture or subluxation of the cervical spine.
[2022-11-24 01:01] VITALS: BP 156/100; PULSE 64; RESP 18; TEMP 36.4; O2SAT 100
--- NOTE | 2022-11-24 01:12 | ED.GENADULT ---
HPI - General Adult General Chief complaint: Head Injury Stated complaint: fall from bed Time Seen by Provider: 11/24/22 01:02 History of Present Illness HPI narrative: Patient a 27-year-old gentleman who presents the emergency department with chief complaint of head injury. Patient reports that he has been incarcerated since the fourth patient reports this evening he was sleeping on his cot in his longterm cell and believes he may have rolled off the cot onto the floor striking his head on the concrete floor the patient is unsure whether he had loss of consciousness and reports that he has a frontal headache patient denies nausea vomiting reports that he has abrasions to the right cheek area that were from a injury sustained prior to his shelter in longterm the patient reports his last tetanus was within the last year. Related Data Allergies Allergy/AdvReac Type Severity Reaction Status Date / Time No Known Allergies Allergy Verified 11/24/22 01:03 Review of Systems Review of Systems: A 10 system review of systems was completed on the patient and is negative except for what is stated in the HPI. Nursing and ancillary documentation was reviewed. PMFSH Past Medical History Medical History Anxiety IV drug abuse Polysubstance use disorder Social History Social History Smoking status: Former smoker Alcohol intake: current Substance use type: opiates Other substance usage details: marga Gender identity (if verbalized by the patient): Male Exam Narrative: GENERAL: Well-appearing, well-nourished, and in no acute distress. HEAD: Normocephalic, there is a 4 cm laceration to the forehead above the right eyebrow, there is an abrasion present to the right maxillary area. EYES: PERRLA and EOMI. ENT: Nares clear, no rhinorrhea or epistaxis. Mucous membranes moist. NECK: Supple. CHEST: Clear to auscultation. No respiratory distress. HEART: Regular rate and rhythm. No murmur heard. Normal peripheral pulses. ABDOMEN: Soft, nontender, nondistended, normal active bowel sounds. EXTREMITIES: Normal range of motion. No edema. SKIN: Warm, dry, no rash. NEURO: No focal deficits. Alert and oriented x3. PSYCH: Normal mood and affect. Course Vital Signs Vital signs: Vital Signs Temperature 36.4 C L 11/24/22 01:01 Pulse Rate 64 11/24/22 01:01 Respiratory Rate 18 11/24/22 01:01 Blood Pressure 156/100 H 11/24/22 01:01 Pulse Oximetry 100 11/24/22 01:01 Oxygen Delivery Room Air 11/24/22 01:01 Temperature 36.4 C L 11/24/22 01:01 Pulse Rate 64 11/24/22 01:01 Respiratory Rate 18 11/24/22 01:01 Blood Pressure 156/100 H 11/24/22 01:01 Pulse Oximetry 100 11/24/22 01:01 Oxygen Delivery Room Air 11/24/22 01:01 Procedures Laceration Laceration 1: Date: 11/24/22 Time: 01:50 Site: face Side (If applicable): right Size (cm): 4 Description: irregular Depth: simple, single layer Local Anesthetic: lidocaine 1% and with epi Amount of anesthesia used (mL): 5 Pre-repair: wound explored and irrigated ====== Skin Level ====== Skin layer closed with: prolene Size (cm): 5-0 Number of sutures: 7 Technique: simple, interrupted ====== Subcutaneous Layer ====== ====== Muscle Layer ====== ====== Tendon Layer ====== Medical Decision Making MDM Narrative Medical decision making narrative: Differential diagnosis includes closed head injury, forehead contusion/laceration, intracranial hemorrhage, cervical spine fracture. Helical imaging was obtained as the patient may have had possible loss of consciousness when he fell off of the month and the longterm cell. Vital Signs Vital Signs: Vital Signs Temperature 36.4 C L 11/24/22 01:01 Pulse Rate 64 07/0
[2022-11-24] MEDS: ACETAMINOPHEN 500 MG TABLET 1000 MG PO (01:13)
[2022-11-24] MEDS: NICOTINE (*PBKC) 21 MG PATCH 1 PATCH TRANSDERM (01:42)
[2022-11-24 04:04] VITALS: BP 138/82; PULSE 68; RESP 15; O2SAT 99
== END 2022-11-24 04:06 | disposition home or self-care (01) ==
PROVIDERS: Emergency Provider Emergency Medicine
DX: S01.81XA Laceration without foreign body of other part of head, initial encounter (principal); Z87.891 Personal history of nicotine dependence; W06.XXXA Fall from bed, initial encounter
CPT/HCPCS: 12013; 70450; 70486; 72125; 99284; A9270

== ENCOUNTER 2024-11-18 19:13 | Emergency (ER) | payer OTHER, SELFPAY ==
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
--- OUTSIDE RECORDS SUMMARY | 2024-11-18 19:15 | XMS_ITS | Encounter Summary ---
Author Organization [facility] Address [address] [place] [address] Phone Care Team Providers Care Powertrain Control Systems Engineer Name Role Phone Chris Barber Primary Care Provider [phone] Reason for Visit * Reason Comments Medication Refill Encounter Details Date Type Department Care Team (Late st Contact Info) Description 04/25/2024 Refill [facility] - [facility] Care - [place] [address] [place] [address] Chris Barber PAC [address] [place] [address] Medication Refill Social History Tobacco Use Types Packs/Day Years Used Date Smoking Tobacco: Some Days Cigarettes Smokeless Tobacco: Never Alcohol Use Standard Drinks/Week Comments Yes 0 (1 standard drink = 0.6 oz pur e alcohol) occasionally [employer] Utilities Answer Date Recorded In the past 12 months has [employer], ERN, oil, or water [employer] threatened to shut off services in your home? No 03/28/2024 Social Connection and Isolation Panel Answer Date Recorded In a typical week, how many times do you talk on the phone with family, friends, or neighbors? Never 03/28/20 How often do you get togethe r with friends or relatives? Once a week 03/28/2024 How often do you attend chur or episcopalian services? Never 03/28/2024 Do you belong to any clubs o r organizations such as jewish groups, unions, fraternal or athletic groups, or school groups? No 03/28/2024 How often do you attend meet ings of the clubs or organizations you belong to? Never 03/28/2024 Are you , , di vorced, , never , or living with a partner? Living with partner 03/28/2024 AUDIT-C Answer Date Recorded Q1: How often do you have a drink containing alc ohol? 2-4 times a month 03/28/2024 Q2: How many drinks containi ng alcohol do you have on a typical day when you are drinking? 5 or 6 03/28/2024 Q3: How often do you have si x or more drinks on one occasion? Monthly 03/28/2024 Overall Financial Resource Strain (CARDIA) Answe r Date Recorded How hard is it for you to pa y for the very basics like food, housing, medical care, and heating? Hard 03/28/2024 PHQ-2 Answer Date Recorded Total Score - Questions 1-9 7 12/2023 [facility] - Occupational Stress Questionnaire Answer Date Recorded Do you feel stress - tense, restless, nervous, or anxious, or unable to sleep at night because your mind is troubled all the time - these days? Very much 03/28/2024 Exercise Vital Sign Answer Date Recorde d On average, how many days pe r week do you engage in moderate to strenuous exercise (like a brisk walk)? 7 days 03/28/2024 On average, how many minutes do you engage in exercise at this level? 120 min 03/28/2024 Hunger Vital Sign Answer Date Recorded Within the past 12 months, y ou worried that your food would run out before you got the money to buy more. Never true 03/28/20 24 Within the past 12 months, t he food you bought just didn't last and you didn't have money to get more. Never true 03/28/2024 PRAPARE - Transportation Answer Date Re corded In the past 12 months, has l ack of transportation kept you from medical appointments or from getting medications? Yes 12/2023 In the past 12 months, has l ack of transportation kept you from meetings, work, or from getting things needed for daily living? Yes 03/28/2024 Sexually Active Control Partners Comments Yes Female Sex and Gender Information Value Date Recorded Sex Assigned at Male 03/30/2024 9:00 AM PC NETWORK TECHNICIAN Legal Sex Male 5:43 PM CDT Gender Identity Male 03/30/2024 9:00 AM PC NETWORK TECHNICIAN Sexual Orientation Straight 03/30/2024 9: 00 AM PC NETWORK TECHNICIAN documented as of this encounter Miscellaneous Notes * Telephone Encounter - Liane Pierson RN - 04/25/2024 8:53 AM PC NETWORK TECHNICIAN Duplicate request. NETWORK TECHNICIAN documented in this encounter Plan of Treatment Not on file documented as of this encounter Visit Diagnoses Diagnosis Anxiety Anxiety state, unspecified documented in this encounter Additional Health Concerns Assessment Noted Time PHQ-9 Depression Total Score: 7 03/28/20 24 1:32 PM PC NETWORK TECHNICIAN documented as of this encounter Care Teams Powertrain Control Systems Engineer Relationship Specialty Start Date End Date Chris Barber, PAC [address] [place] [phone] PCP - General Physician Film Developer 03/28/24 documented as of this encounter
--- OUTSIDE RECORDS SUMMARY | 2024-11-18 19:15 | XMS_ITS | Continuity of Care Document ---
[facility] Organization [facility] Address [address] [place] [address] Phone Care Team Providers Care Animal Nursery Worker Name Role Phone Unavailable Unavailable Unavailable Procedures Procedure Date HOME VST EST PT LOW TO MOD SEVERITY HOME VST EST PT LOW TO MOD SEVERITY HOME VST EST PT LOW TO MOD SEVERITY HOME VST EST PT LOW TO MOD SEVERITY HOME VST EST PT LOW TO MOD SEVERITY HOME VST EST PT LOW TO MOD SEVERITY HOME VST EST PT LOW TO MOD SEVERITY HOME VST EST PT LOW TO MOD SEVERITY HOME VST EST PT LOW TO MOD SEVERITY HOME VST EST PT LOW TO MOD SEVERITY HOME VST EST PT LOW TO MOD SEVERITY HOME VST EST PT LOW TO MOD SEVERITY HOME VST EST PT LOW TO MOD SEVERITY HOME VST EST PT LOW TO MOD SEVERITY Advance Directives Directive Yes / No Effective Date File Name No Information Encounters Encounter Description Practice Location Reason(s) For Visit Diagnoses Date Provider Providers Copied on Encounter HOME VST EST PT LOW TO MOD SEVERITY [facility] , [address], [place], [place], [address], [place] tel:[phone] RESIDENTIAL FOR [facility] REASON FOR CONSULT NOS No Information HOME VST EST PT LOW TO MOD SEVERITY [facility] , [address], [place], [place], [address], [place] tel:[phone] RESIDENTIAL FOR [facility] REASON FOR CONSULT NOS No Information HOME VST EST PT LOW TO MOD SEVERITY [facility] , [address], [place], [place], [address], [place] tel:[phone] [facility] REASON FOR CONSULT NOS No Information HOME VST EST PT LOW TO MOD SEVERITY [facility] , [address], [place], [place], [address], [place] tel:[phone] [facility] REASON FOR CONSULT NOS No Information HOME VST EST PT LOW TO MOD SEVERITY [facility] , [address], [place], [place], [address], [place] tel:[phone] [facility] REASON FOR CONSULT NOS No Information HOME VST EST PT LOW TO MOD SEVERITY [facility] , [address], [place], [place], [address], [place] tel:[phone] [facility] REASON FOR CONSULT NOS No Information HOME VST EST PT LOW TO MOD SEVERITY [facility] , [address], [place], [place], [address], [place] tel:[phone] [facility] REASON FOR CONSULT NOS No Information HOME VST EST PT LOW TO MOD SEVERITY [facility] , [address], [place], [place], [address], [place] tel:[phone] [facility] REASON FOR CONSULT NOS No Information HOME VST EST PT LOW TO MOD SEVERITY [facility] , [address], [place], [place], [address], [place] tel:[phone] [facility] REASON FOR CONSULT NOS No Information HOME VST EST PT LOW TO MOD SEVERITY [facility] , [address], [place], [place], [address], [place] tel:[phone] [facility] REASON FOR CONSULT NOS No Information HOME VST EST PT LOW TO MOD SEVERITY [facility] , [address], [place], [place], [address], [place] tel:[phone] [facility] REASON FOR CONSULT NOS No Information HOME VST EST PT LOW TO MOD SEVERITY [facility] , [address], [place], [place], [address], tel:[phone] [facility] REASON FOR CONSULT NOS No Information HOME VST EST PT LOW TO MOD SEVERITY [facility] , [address], [place], [place], [address], tel:[phone] [facility] REASON FOR CONSULT NOS No Information HOME VST EST PT LOW TO MOD SEVERITY [facility] , [address], [place], [place], [address], tel:[phone] [facility] REASON FOR CONSULT NOS No Information Family History Family Member Type Diagnosis Age At Onset No Information Payers Payer name Insurance type Covered libertarian ID Authoriza tion(s) No Information Social History Type Description Quantity Date Captured Comments Sex Male Smoking Status No Information Chief Complaint And Reason For Visit No Information Reason For Referral Reason For Referral No Information History Of Present Illness Encounter Date Complaint History Of Prese nt Illness No Information Functional Status Date Functional Assessmen t No Information Instructions Date Instruction Additional Infor mation No Information Assessments Type Assessment Date No Information Patient Care Teams Name Effective Dates (start - stop) Status Members No Information
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
--- OUTSIDE RECORDS SUMMARY | 2024-11-18 19:15 | XMS_ITS | Clinical Summary ---
Author Organization [facility] Address [address] [place] [address] Phone Care Team Providers Care Tire Recapper Name Role Phone Chris Barber Primary Care Provider [phone] Allergies Active Allergy Reactions Criticality Noted Date Comments Penicillins Unknown High 03/10/2019 Per parents he is allergic Topiramate Other (see Comments) High 12/25/2011 Trouble speaking Tramadol Itching High 07/22/2022 Medications ALPRAZolam (XANAX) 0.25 MG TabletIndicati ons:Anxiety Take 1 Tablet by mouth nightly as needed for Anxiety. 30 Tablet 4 Active prazosin (MINIPRESS) 1 MG CapsuleIndicat ions:PTSD (post-traumati c stress disorder) Take 1 Capsule by mouth nightly. 90 Capsule 5 Active traZODone (DESYREL) 150 MG TabletIndicati ons:Psychophys iological insomnia Take 1 Tablet by mouth nightly. 90 Tablet 5 Active FLUoxetine HCl 60 MG TabletIndicati ons:Anxiety TAKE 1 TABLET BY MOUTH EVERY DAY 30 Tablet 5 Active FLUoxetine HCl 60 MG TabletIndicati ons:Anxiety Take 1 Tablet by mouth daily for 30 days. 90 Tablet 4 11/13/19 25 Discontinued Active Problems No known active problems Encounters Date Type Department Care Team Description 11/08/2024 Refill [facility] - Primary Care - [place] [address] [place] [address] Chris Arriaga PAC Medication Refill from Last 3 Months Immunizations Immunization Administration Dates Next Due DTAP VACCINE 04/07/1998, 4,1993,07/04 DTP-Hib 1993 Diptheria, Pertussis, And Tetanus 10/05/2007 Hepatitis B Vaccine, Pediatric/adolescent 1993 Hepatitis B Vaccine,unspecif ied Formulation 1993,1993 Influenza,Split Virus,Trivalent,Injectable,PF 03/28/2024 MMR Vaccine 01/17/1999,04/07/1998 OPV 04/07/1998, 4,1993,07/04 Pneumococcal conjugate PCV20 , polysaccharide [id number] conjugate, adjuvant, PF 03/28/2024 TDAP Vaccine 10/03/2022,08/25/2020 Family History Medical History Relation Name Comments Anxiety disorder Brother 1 Depression Brother 1 Anxiety disorder Brother 2 Depression Brother 2 Anxiety disorder Brother 3 Depression Brother 3 No Known Problems Father Anxiety disorder Mother Depression Mother No Known Problems Sister Relation Name Status Comments Brother 1 Alive Brother 2 Alive Brother 3 Alive Father Unknown Mother Sister Alive Social History Tobacco Use Types Packs/Day Years Used Date Smoking Tobacco: Some Days Cigarettes Smokeless Tobacco: Never Tobacco Cessation:Ready to Q uit: No; Counseling Given: No Alcohol Use Standard Drinks/Week Comments Yes 0 (1 standard drink = 0.6 oz pur e alcohol) occasionally [employer] Utilities Answer Date Recorded In the past 12 months has [employer], gas, oil, or water [employer] threatened to shut off services in your home? No 03/28/2024 Social Connection and Isolation Panel Answer Date Recorded In a typical week, how many times do you talk on the phone with family, friends, or neighbors? Never 03/28/20 How often do you get togethe r with friends or relatives? Once a week 03/28/2024 How often do you attend chur ch or yarsani services? Never 03/28/2024 Do you belong to any clubs o r organizations such as taoism groups, unions, fraternal or athletic groups, or [...] Total Score - Questions 1-9 7 12/2023 [facility] of Occupat ional [facility] - Occupational Stress Questionnaire Answer Date [...] Sex Assigned at Male 03/30/2024 9:00 AM SUPERVISOR PLATE PASTING Legal Sex Male 5:43 PM CDT Gender Identity Male 03/30/2024 9:00 AM SUPERVISOR PLATE PASTING Sexual Orientation Straight 03/30/2024 9: 00 AM SUPERVISOR PLATE PASTING Last Filed Vital Signs Vital Sign Reading Time Taken Comments Blood Pressure 130/88 03/28/2024 1:33 PM SUPERVISOR PLATE PASTING Pulse 99 03/28/2024 1:33 PM SUPERVISOR PLATE PASTING Temperature 37.8 C (100 F) 03/28/2024 1:33 PM SUPERVISOR PLATE PASTING Respiratory Rate 20 03/28/2024 1:33 PM SUPERVISOR PLATE PASTING Oxygen Saturation 97% 03/28/2024 1:33 PM SUPERVISOR PLATE PASTING Inhaled Oxygen Concentration - - Weight 91.6 kg (202 lb) 03/28/2024 1:33 PM SUPERVISOR PLATE PASTING Height 190.5 cm (6' 3) 05/01/2023 10:22 AM SUPERVISOR PLATE PASTING Body Mass Index 25.25 05/01/2023 10:22 AM SUPERVISOR PLATE PASTING Plan of Treatment Health Maintenance Due Date Last Done Comments Hepatitis C Virus (HCV) Screening 1993 Human Papillomavirus (HPV) Immunization (1 - Male 3-dose series) 2008 SARS-COV-2 Immunization ( - season) 2024 DTaP/Tdap/Td Immunization (9 - Td or Tdap) 08/12/2034 08/12/2024, 10/03/2022, 08/25/2020, Additional history exists Respiratory Syncytial Virus (RSV) Immunization (Adult) (1 - 1-dose 75+ series) 2068 Hepatitis B Immunization Completed 994, 1993, 1993 Influenza Immunization Completed 03/28/2024 Pneumococcal Immunization Combined Completed 03/28/2024 TdaP Immunization Discontinued 08/12/2024, , 08/25/2020 Meningococcal Immunization (ACWY) Aged Out No longer eligible based on patient's age to complete this topic Rotavirus Immunization Aged Out No lo nger eligible based on patient's age to complete this topic Insurance MEDICAID AETNA [facility] Care Teams Tire Recapper Relationship Specialty Start Date End Date Chris Barber, PAC [address] [place] [address] PCP - General Physician Senior Operator 03/28/24
--- OUTSIDE RECORDS SUMMARY | 2024-11-18 19:15 | XMS_ITS | Encounter Summary ---
Author Organization [facility] Address [address] [place] [address] Phone Care Team Providers Care Door Cutter Name Role Phone Chris Barber Primary Care Provider [phone] Reason for Visit * Reason Comments Medication Refill Encounter Details Date Type Department Care Team (Late st Contact Info) Description 07/26/2024 Refill [facility] - Primary Care - [place] [address] [place] [address] Chris Barber PAC [address] [place] [address] Medication Refill Social History Tobacco Use Types Packs/Day Years Used Date Smoking Tobacco: Some Days Cigarettes Smokeless Tobacco: Never Alcohol Use Standard Drinks/Week Comments Yes 0 (1 standard drink = 0.6 oz pur e alcohol) occasionally [employer] Utilities Answer Date Recorded In the past 12 months has [employer], oil, or water [employer] threatened to shut off services in your home? No 03/28/2024 Social Connection and Isolation Panel Answer Date Recorded In a typical week, how many times do you talk on the phone with family, friends, or neighbors? Never 03/28/20 How often do you get togethe r with friends or relatives? Once a week 03/28/2024 How often do you attend chur or pentecostalism services? Never 03/28/2024 Do you belong to any clubs o r organizations such as caodaism groups, unions, fraternal or athletic groups, or [...] Total Score - Questions 1-9 7 12/2023 [facility] - Occupational Stress Questionnaire Answer Date [...] Sex Assigned at Male 03/30/2024 9:00 AM UNDERCOLLAR BASTER Legal Sex Male 5:43 PM CDT Gender Identity Male 03/30/2024 9:00 AM UNDERCOLLAR BASTER Sexual Orientation Straight 03/30/2024 9: 00 AM UNDERCOLLAR BASTER documented as of this encounter Miscellaneous Notes * Telephone Encounter - Chris Barber PAC - 07/28/2024 9:56 AM CDT Rx denied. Patient sees psych (Dr. Isabelle Jacinto) who is providing clonazepam. * Telephone Encounter - Sonny Ramsay RN - 07/28/2024 9:04 AM CDT Medication failed the protocol, provider to review and approve the medication order if appropriate. Requested Prescriptions Pending Prescriptions Disp Refills ALPRAZolam (XANAX) 0.25 MG Tablet [Pharmacy Med Name: ALPRAZOLAM 0.25 MG TABLET] 30 Tablet 0 Sig: Take 1 Tablet by mouth nightly as needed for Anxiety. Not Delegated - Benzodiazepines Protocol Failed - 07/28/2024 9:04 AM Failed - This refill cannot be delegated Passed - Visit with relevant provider in past 12 months or upcoming 90 days Recent Visits Date Type Provider Dept 03/28/24 Office Visit Chris Barber PAC [facility] Showing recent visits within past 365 days and meeting all other requirements Future Appointments Date Type Provider Dept 09/19/24 Appointment Lab, [facility] 09/26/24 Appointment Chris Barber PAC [facility] Showing future appointments within next 90 days and meeting all other requirements documented in this encounter Plan of Treatment Not on file documented as of this encounter Visit Diagnoses Diagnosis Anxiety Anxiety state, unspecified documented in this encounter Additional Health Concerns Assessment Noted Time PHQ-9 Depression Total Score: 7 03/28/20 24 1:32 PM UNDERCOLLAR BASTER documented as of this encounter Care Teams Door Cutter Relationship Specialty Start Date End Date Chris Barber PAC [address] [place] [address] PCP - General Physician [employer] Guidance Counselor 03/28/24 documented as of this encounter
[2024-11-18 19:16] VITALS: BP 127/91; PULSE 77; RESP 18; TEMP 36.6; O2SAT 93
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
--- OUTSIDE RECORDS SUMMARY | 2024-11-18 20:25 | XMS_ITS | Encounter Summary ---
Author Organization [facility] Address [address] [place] [address] Phone Care Team Providers Care Patent Solicitor Name Role Phone Chris Barber Primary Care Provider [phone] Reason for Visit * Reason Comments Medication Refill Encounter Details Date Type Department Care Team (Late st Contact Info) Description 04/25/2024 Refill [facility] - Primary Care - [place] [address] [place] [address] Chris Barber PAC [address] [place] [address] Medication Refill Social History Tobacco Use Types Packs/Day Years Used Date Smoking Tobacco: Some Days Cigarettes Smokeless Tobacco: Never Alcohol Use Standard Drinks/Week Comments Yes 0 (1 standard drink = 0.6 oz pur e alcohol) occasionally [employer] Utilities Answer Date Recorded In the past 12 months has [employer], [employer], oil, or water [employer] threatened to shut off services in your home? No 03/28/2024 Social Connection and Isolation Panel Answer Date Recorded In a typical week, how many times do you talk on the phone with family, friends, or neighbors? Never 03/28/20 How often do you get togethe r with friends or relatives? Once a week 03/28/2024 How often do you attend chur or episcopal services? Never 03/28/2024 Do you belong to any clubs o r organizations such as holiness groups, unions, fraternal or athletic groups, or [...] Total Score - Questions 1-9 7 12/2023 [facility] - Occupational Stress Questionnaire Answer Date Recorded [...] Sex Assigned at Male 03/30/2024 9:00 AM ROLLER COASTER DESIGNER Legal Sex Male 5:43 PM CDT Gender Identity Male 03/30/2024 9:00 AM ROLLER COASTER DESIGNER Sexual Orientation Straight 03/30/2024 9: 00 AM ROLLER COASTER DESIGNER documented as of this encounter Miscellaneous Notes * Telephone Encounter - Liane Pierson RN - 04/25/2024 8:53 AM ROLLER COASTER DESIGNER Duplicate request. ER COASTER DESIGNER documented in this encounter Plan of Treatment Not on file documented as of this encounter Visit Diagnoses Diagnosis Anxiety Anxiety state, unspecified documented in this encounter Additional Health Concerns Assessment Noted Time PHQ-9 Depression Total Score: 7 03/28/20 24 1:32 PM ROLLER COASTER DESIGNER documented as of this encounter Care Teams Patent Solicitor Relationship Specialty Start Date End Date Chris Barber, PAC [address] [place] [id number] PCP - General Physician Bath Mix Operator 03/28/24 documented as of this encounter
--- OUTSIDE RECORDS SUMMARY | 2024-11-18 20:25 | XMS_ITS | Continuity of Care Document ---
Author Organization [facility] Address [address] [place] [address] Phone Care Team Providers Care Forest Products Gatherer Name Role Phone Unavailable Unavailable Unavailable Procedures [...] VST EST PT LOW TO MOD SEVERITY Robert Applebaum MD [facility] , [address], [place], [place], [id number], [place] tel:[phone] RESIDENTIAL FOR [facility] REASON FOR CONSULT NOS No Information HOME VST EST PT LOW TO MOD SEVERITY [facility] , [address], [place], [place], [address], [place] tel:[phone] RESIDENTIAL FOR [facility] REASON FOR CONSULT NOS No Information HOME VST EST PT LOW TO MOD SEVERITY Robert Applebaum MD [facility] , [address], [place], [place], [address], [place] tel:[phone] [facility] REASON FOR CONSULT NOS No Information HOME VST EST PT LOW TO MOD SEVERITY [facility] , [address], [place], [place], [address], [place] tel:[phone] [facility] REASON FOR CONSULT NOS No Information HOME VST EST PT LOW TO MOD SEVERITY [facility] , [address], [place], [place], [address], [place] tel:[phone] [facility] REASON FOR CONSULT NOS No Information HOME VST EST PT LOW TO MOD SEVERITY [facility] , [address], [place], [place], [address], [place] tel:[phone] [facility] REASON FOR CONSULT NOS No Information HOME VST EST PT LOW TO MOD SEVERITY [facility] , [address], [place], [place], [address], [place] tel:[phone] [facility] REASON FOR CONSULT NOS No Information HOME VST EST PT LOW TO MOD SEVERITY [facility] , [address], [place], [place], [address], [place] tel:[phone] [facility] REASON FOR CONSULT NOS No Information HOME VST EST PT LOW TO MOD SEVERITY [facility] , [address], [place], [place], [address], [place] tel:[phone] [facility] REASON FOR CONSULT NOS No Information HOME VST EST PT LOW TO MOD SEVERITY [facility] , [address], [place], [place], [address], [place] tel:[phone] [facility] REASON FOR CONSULT NOS No Information HOME VST EST PT LOW TO MOD SEVERITY [facility] , [address], [place], [place], [address], [place] tel:[phone] [facility] REASON FOR CONSULT NOS No Information HOME VST EST PT LOW TO MOD SEVERITY [facility] , [address], [place], [place], [address], tel:[phone] [facility] REASON FOR CONSULT NOS No Information HOME VST EST PT LOW TO MOD SEVERITY [facility] , [address], [place], [place], [address], tel:[phone] [facility] REASON FOR CONSULT NOS No Information HOME VST EST PT LOW TO MOD SEVERITY [facility] , [address], [place], [place], [address], tel:[phone] [facility] REASON FOR CONSULT NOS No Information Family History Family Member Type Diagnosis Age At Onset No Information Payers Payer name Insurance type Covered alliance party ID Authoriza tion(s) No Information Social History [...]
--- OUTSIDE RECORDS SUMMARY | 2024-11-18 20:26 | XMS_ITS | Clinical Summary ---
Author Organization [facility] Address [address] [place] [address] Phone Care Team Providers Care Human Resource Officer Name Role Phone Chris Barber Primary Care Provider [phone] Allergies Active Allergy Reactions Criticality Noted Date [...] Type Department Care Team Description 11/08/2024 Refill [facility] - Primary Care - [place] [address] [place] [address] Chris Arriaga PAC Medication Refill from Last 3 Months Immunizations Immunization Administration Dates Next Due DTAP VACCINE 04/07/1998, 4,1993,07/04 DTP-Hib 1993 Diptheria, Pertussis, And Tetanus 10/05/2007 Hepatitis B Vaccine, Pediatric/adolescent 1993 Hepatitis B Vaccine,unspecif ied Formulation 1993,1993 Influenza,Split Virus,Trivalent,Injectable,PF 03/28/2024 MMR Vaccine 01/17/1999,04/07/1998 OPV 04/07/1998, 4,1993,07/04 Pneumococcal conjugate PCV20 , polysaccharide [id number] conjugate, adjuvant, PF 03/28/2024 TDAP Vaccine 10/03/2022,08/25/2020 [...] = 0.6 oz pur e alcohol) occasionally [employer] Utilities Answer Date Recorded In the past 12 months has [employer], gas, oil, or water [employer] threatened to shut off services in your home? No 03/28/2024 Social Connection and Isolation Panel Answer Date Recorded In a typical week, how many times do you talk on the phone with family, friends, or neighbors? Never 03/28/20 How often do you get togethe r with friends or relatives? Once a week 03/28/2024 How often do you attend chur ch or sabianism services? Never 03/28/2024 Do you belong to any clubs o r organizations such as confucianist groups, unions, fraternal or athletic groups, or [...] Total Score - Questions 1-9 7 12/2023 [facility] of Occupat ional [facility] - Occupational Stress Questionnaire Answer Date [...] Sex Assigned at Male 03/30/2024 9:00 AM RAPID OUTSOLE STITCHER Legal Sex Male 5:43 PM CDT Gender Identity Male 03/30/2024 9:00 AM RAPID OUTSOLE STITCHER Sexual Orientation Straight 03/30/2024 9: 00 AM RAPID OUTSOLE STITCHER Last Filed Vital Signs Vital Sign Reading Time Taken Comments Blood Pressure 130/88 03/28/2024 1:33 PM RAPID OUTSOLE STITCHER Pulse 99 03/28/2024 1:33 PM RAPID OUTSOLE STITCHER Temperature 37.8 C (100 F) 03/28/2024 1:33 PM RAPID OUTSOLE STITCHER Respiratory Rate 20 03/28/2024 1:33 PM RAPID OUTSOLE STITCHER Oxygen Saturation 97% 03/28/2024 1:33 PM RAPID OUTSOLE STITCHER Inhaled Oxygen Concentration - - Weight 91.6 kg (202 lb) 03/28/2024 1:33 PM RAPID OUTSOLE STITCHER Height 190.5 cm (6' 3) 05/01/2023 10:22 AM RAPID OUTSOLE STITCHER Body Mass Index 25.25 05/01/2023 10:22 AM RAPID OUTSOLE STITCHER Plan of Treatment Health Maintenance Due Date [...] to complete this topic Insurance MEDICAID AETNA [facility]ID [facility] Care Teams Human Resource Officer Relationship Specialty Start Date End Date Chris Barber, PAC [address] [place] [address] PCP - General Physician Silk Trimmer 03/28/24
--- OUTSIDE RECORDS SUMMARY | 2024-11-18 20:26 | XMS_ITS | Encounter Summary ---
Author Organization [facility] Address [address] [place] [address] Phone Care Team Providers Care Telegraphic Typewriter Installer Name Role Phone Chris Barber Primary Care Provider [phone] Reason for Visit * Reason Comments Medication Refill Encounter Details Date Type Department Care Team (Late st Contact Info) Description 07/26/2024 Refill [facility] - Primary Care - [place] [address] [place] [address] Chris Barber PAC [address] [place] [address] Medication Refill Social History Tobacco Use Types Packs/Day Years Used Date Smoking Tobacco: Some Days Cigarettes Smokeless Tobacco: Never Alcohol Use Standard Drinks/Week Comments Yes 0 (1 standard drink = 0.6 oz pur e alcohol) occasionally [employer] Answer Date Recorded In the past 12 months has [employer], [employer], oil, or water [employer] threatened to shut off services in your home? No 03/28/2024 Social Connection and Isolation Panel Answer Date Recorded In a typical week, how many times do you talk on the phone with family, friends, or neighbors? Never 03/28/20 How often do you get togethe r with friends or relatives? Once a week 03/28/2024 How often do you attend chur or sikh services? 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 Legal Sex Male 5:43 PM CDT Gender Identity Male 03/30/2024 9:00 AM MILLWRIGHT INSTRUCTOR Sexual Orientation Straight 03/30/2024 9: 00 AM MILLWRIGHT INSTRUCTOR documented as of this encounter Miscellaneous Notes [...] Dept 03/28/24 Office Visit Chris Barber PAC [facility] Showing recent visits within past 365 days and meeting all other requirements Future Appointments Date Type Provider Dept 09/19/24 Appointment Lab, [facility] 09/26/24 Appointment Chris Barber PAC [facility] Showing future appointments within next 90 days and meeting all other requirements documented in this encounter Plan of Treatment Not on file documented as of this encounter Visit Diagnoses Diagnosis Anxiety Anxiety state, unspecified documented in this encounter Additional Health Concerns Assessment Noted Time PHQ-9 Depression Total Score: 7 03/28/20 24 1:32 PM MILLWRIGHT INSTRUCTOR documented as of this encounter Care Teams Telegraphic Typewriter Installer Relationship Specialty Start Date End Date Chris Barber PAC [address], [place] [address] PCP - General Physician Candy Spreader 03/28/24 documented as of this encounter
[2024-11-18] MEDS: HYDROcodone/acetaminophen (*CRX) 5-325 MG TABLET 1 TAB PO (20:40)
[2024-11-18] MEDS: BACITRACIN OINTMENT 15 GM TUBE 1 APPLIC TOPICAL (21:44)
== END 2024-11-18 21:47 | disposition home or self-care (01) ==
PROVIDERS: Emergency Provider Student in an Organized Health Care Education/Training Program
DX: S80.811A Abrasion, right lower leg, initial encounter (principal); S80.851A Superficial foreign body, right lower leg, initial encounter; Z87.891 Personal history of nicotine dependence; V17.4XXA Pedal cycle driver injured in collision with fixed or stationary object in traffic accident, initial encounter; Y93.55 Activity, bike riding
CPT/HCPCS: 73590; 99283; A9270

== ENCOUNTER 2025-01-07 16:44 | Emergency (ER) | payer OTHER, SELFPAY ==
--- NOTE | ~2025-01-07 | CT_ITS ---
EXAMINATION: CT brain wo con DATE: 01/07/2025 17:13 INDICATION: Seizure TECHNIQUE: Computed tomography (CT) of the head was performed without intravenous contrast. Sagittal and coronal reconstructions were performed. The mA was adjusted according to patient size. Iterative reconstruction technique was employed. The dose-length product was 681.00 mGy-cm. COMPARISON: head CT dated 11/24/2022 FINDINGS: No acute intracranial hemorrhage, acute infarction or abnormal extra axial fluid collection. Ventricles are normal and symmetric. No mass/mass effect. The orbits and mastoid air cells are normal. Mild mucosal thickening the right maxillary sinus. IMPRESSION: 1. Normal brain. No acute intracranial process. Reviewed, dictated and finalized at location A.
[2025-01-07 16:42] VITALS: BP 161/93; PULSE 96; RESP 14; TEMP 36.9; O2SAT 98
--- NOTE | 2025-01-07 16:51 | ECG_ITS ---
Test Date: 2025-01-07 16:55:46 Measurements Intervals [place] Rate: 85 P: -23 MT: 135 QRS: 55 QRSD: 98 T: 56 QT: 373 QTc: 445 Interpretive Statements SINUS RHYTHM BASELINE ARTIFACT- I, II, III, AVR, AVL, AVF NORMAL ECG No previous ECG available for comparison Electronically Signed On 01-07-2025 19:05:15 CDT by Tone Mishra D.O.
[2025-01-07 16:53] VITALS: O2SAT 97
--- NOTE | 2025-01-07 16:55 | PC.NURSE ---
Pt provided with urinal for urine sample
[2025-01-07] MEDS: LORazepam INJ (*CRX) 2 MG/ML VIAL 1 MG IV PUSH (17:01)
[2025-01-07] MEDS: SODIUM CHLORIDE 0.9% IV 1,000 ML 999 ML IV CONT ×2 (17:04→19:03)
[2025-01-07 17:05] LABS: Hematocrit 37.1 % (42.0-52.0); Hemoglobin 12.5 g/dL (14.0-18.0); Immature Granulocyte Percent A 0.5 % (0-0.5); Lymphocytes Absolute Auto 0.80 K/mm3 (0.9-3.2); Mean Corpuscular HGB Conc 33.7 g/dl (32-36); Mean Corpuscular Hemoglobin 28.3 pg (26-34); Mean Corpuscular Volume 83.9 fl (80-100); Nucleated Red Blood Cells Absolute Auto 0.000 K/mm3 (0.0-0.012); Nucleated Red Blood Cells Perc 0.0 % (0.0-0.2); Platelet Count Result 174 k/mm3 (150-375); Red Blood Count 4.42 M/mm3 (4.6-6.20); White Blood Count 6.0 K/mm3 (4.5-10.0)
[2025-01-07 17:16] LABS: INR 0.9; Prothrombin Time 12.8 Seconds (11.1-14.7)
[2025-01-07 17:27] LABS: Alanine Aminotransferase 136 U/L (6-50); Albumin Level 5.1 g/dL (3.5-5.1); Alkaline Phosphatase 112 U/L (38-126); Anion Gap 15 mmol/L (4-12); Aspartate Amino Transferase 148 U/L (17-59); Bilirubin,Total 2.0 mg/dL (0.2-1.3); Blood Urea Nitrogen 13 mg/dL (9-20); Calcium 9.6 mg/dL (8.4-10.2); Carbon Dioxide 25 mmol/L (22-30); Chloride 89 mmol/L (98-107); Estimated CRCL calculation 150 ml/min; Estimated Glomerular Filt Rate > 60; Glucose 152 mg/dL (65-110); Potassium 4.0 mmol/L (3.4-5.0); Sodium 129 mmol/L (137-145); Total Protein 8.8 g/dL (6.3-8.2)
[2025-01-07 17:44] VITALS: BP 148/83; PULSE 89; RESP 12; O2SAT 97
[2025-01-07 17:54] LABS: Add Urine Microscopic? YES; Appearance Urine Clear (Clear); Glucose Urine UA Negative (Negative); Leukocyte Esterase Ur Trace LEU/UL (Negative); Need Manual Microscopic Reviewed; Nitrate Urine Negative (Negative); Non Pathogenic Casts 0-2; Specific Grav Ur 1.033 (1.001-1.035)
[2025-01-07 17:56] LABS: Spermatozoa Urine PRESENT
[2025-01-07 18:05] LABS: Cannabinoid Screen Urine Positive (Negative)
[2025-01-07] MEDS: ACETAMINOPHEN 500 MG TABLET 1000 MG PO (18:42)
[2025-01-07 18:44] VITALS: BP 141/88; PULSE 70; RESP 12; O2SAT 100
[2025-01-07 19:14] LABS: Anion Gap 10 mmol/L (4-12); Blood Urea Nitrogen 14 mg/dL (9-20); Calcium 9.2 mg/dL (8.4-10.2); Carbon Dioxide 29 mmol/L (22-30); Chloride 91 mmol/L (98-107); Estimated CRCL calculation 158 ml/min; Estimated Glomerular Filt Rate > 60; Glucose 99 mg/dL (65-110); Potassium 3.8 mmol/L (3.4-5.0); Sodium 130 mmol/L (137-145)
--- NOTE | 2025-01-07 20:28 | ED.SEIZURE ---
HPI - Seizure General Chief Complaint: Seizure Stated Complaint: possible seizure Time Seen by Provider: 01/07/25 16:44 Source: patient Mode of arrival: EMS Limitations: no limitations History of Present Illness HPI Narrative: 29-year-old was brought in by EMS with a complains of possible seizure like activity. I spoke with EMS patient was was coming across the street and he started having seizure-like activity the bystanders pulled him to the side and call 911. Patient upon arrival is wide awake alert. He denies having any headache. Has a remote history of seizure activity and he noted follow-up with a neurologist for his own he antiseizure medication. Patient has a history of alcoholism. His last drink was 2 days ago. He is presently homeless. Denies any drug abuse. No history of fever or chills Related Data Allergies Allergy/AdvReac Type Severity Reaction Status Date / Time No Known Allergies Allergy Verified 01/07/25 16:51 Review of Systems Review of Systems: All systems reviewed & are unremarkable except as noted in HPI and below Constitutional: Constitutional: Reports no additional constitutional complaints Eyes: Eyes: Reports no additional eye complaints ENT: Reports system reviewed and no additional complaints, except as documented Cardiovascular: Cardiovascular: Reports no additional cardiovascular complaints Respiratory: Respiratory: Reports no additional respiratory complaints Gastrointestinal: Gastrointestinal: Reports no additional gastrointestinal complaints Genitourinary: Genitourinary: Reports no additional male genitourinary complaints Musculoskeletal: Musculoskeletal: Reports no additional musculoskeletal complaints Neurologic: Reports system reviewed and no additional complaints, except as documented Psychiatric: Psychiatric: Reports no additional psychiatric complaints PMFSH Past Medical History Medical History Anxiety IV drug abuse Polysubstance use disorder Social History Social History Smoking status: Former smoker Alcohol intake: current Substance use type: opiates Other substance usage details: marag Gender identity (if verbalized by the patient): Male Exam Narrative: GENERAL: Well-appearing, well-nourished, and in no acute distress. HEAD: Normocephalic, atraumatic. EYES: PERRLA and EOMI. ENT: Nares clear, no rhinorrhea or epistaxis. Mucous membranes moist. NECK: Supple. CHEST: Clear to auscultation. No respiratory distress. HEART: Regular rate and rhythm. No murmur heard. Normal peripheral pulses. ABDOMEN: Soft, nontender, nondistended, normal active bowel sounds. EXTREMITIES: Normal range of motion. No edema. Has abrasions on his right leg SKIN: Warm, dry, no rash. NEURO: No focal deficits. Alert and oriented x3. PSYCH: Normal mood and affect. Course Course Emergency Course: Patient comfortably resting I did give him couple L of fluid and Ativan. I discussed lab and CT findings with the patient and his friend. He feels comfortable going home. Advised him to follow-up with a neurologist. Vital Signs Vital signs: Vital Signs Temperature 36.9 C 01/07/25 16:42 Pulse Rate 96 01/07/25 16:42 Respiratory Rate 14 01/07/25 16:42 Blood Pressure 161/93 H 01/07/25 16:42 Pulse Oximetry 98 01/07/25 16:42 Oxygen Delivery Room Air 01/07/25 16:42 Temperature 36.9 C 01/07/25 16:42 Pulse Rate 70 01/07/25 18:44 Respiratory Rate 12 01/07/25 18:44 Blood Pressure 141/88 H 01/07/25 18:44 Pulse Oximetry 100 01/07/25 18:44 Oxygen Delivery Room Air 01/07/25 16:53 MDM - Seizure MDM Narrative Medical decision making narrative: 29-year-old with a history of alcoholism presents to the ER with a complains of having seizure disorder his last drink was 2 days ago his exam is unremarkable does not appear to be in postictal state in the do lab work, CT in well hydrated with normal saline will give Ativan . Differential Diagnosis Differential diagnosis: Likely intractable seizure disorder, generalized seizure and other (Alcohol withdrawal seizure) Medical Records Attestation: I reviewed the patient's medical records. Lab Data Attestation: I reviewed the patient's lab results. 01/07/25 17:00 01/07/25 18:55 Labs: Lab Results 01/07/25 01/07/25 01/07/25 Range/Units 17:00 17:33 18:55 WBC 6.0 (4.5-10.0) K/mm3 RBC 4.42 L (4.6-6.20) M/mm3 Hgb 12.5 L (14.0-18.0) g/dL Hct 37.1 L (42.0-52.0) % MCV 83.9 (80-100) fl MCH 28.3 (26-34) pg MCHC 33.7 (32-36) g/dl RDW 13.5 (11.5-14.5) % Plt Count 174 (150-375) k/mm3 MPV 9.7 (7.4-10.4) fl Immature Gran % (Auto) 0.5 (0-0.5) % Neut % (Auto) 73.0 (45.5-73.1) % Lymph % (Auto) 13.4 L (18.3-44.2) % [place] % (Auto) 9.4 H (2.6-8.5) % Eos % (Auto) 3.0 (0-4.4) % Baso % (Auto) 0.7 (0.2-1.2) % Lymph # (Auto) 0.80 L (0.9-3.2) K/mm3 [place] # (Auto) 0.6 (0.1-0.6) K/mm3 Eos # (Auto) 0.2 (0-0.3) K/mm3 Baso # (Auto) 0.0 (0.0-0.1) K/mm3 Abs Immat Gran (auto) 0.03 (0.00-0.031) K/mm3 Absolute Neuts (auto) 4.3 (1.3-6.7) K/mm3 Absolute Nucleated RBC 0.000 (0.0-0.012) K/mm3 Nucleated RBC % 0.0 (0.0-0.2) % PT 12.8 (11.1-14.7) Seconds INR 0.9 Sodium 129 L 130 L (137-145) mmol/L Potassium 4.0 3.8 (3.4-5.0) mmol/L Chloride 89 L 91 L (98-107) mmol/L Carbon Dioxide 25 29 (22-30) mmol/L Anion Gap 15 H 10 (4-12) mmol/L BUN 13 14 (9-20) mg/dL Creatinine 0.71 0.67 L (0.7-1.3) mg/dL Estim Creat Clear Calc 150 158 ml/min Estimated GFR > 60 > 60 (59 - ) Glucose 152 H 99 (65-110) mg/dL Lactic Acid 3.7 H 0.8 (0.7-2.0) mmol/L Calcium 9.6 9.2 (8.4-10.2) mg/dL Total Bilirubin 2.0 H (0.2-1.3) mg/dL AST 148 H (17-59) U/L ALT 136 H (6-50) U/L Alkaline Phosphatase 112 (38-126) U/L Total Protein 8.8 H (6.3-8.2) g/dL Albumin 5.1 (3.5-5.1) g/dL Urine Color Dark yellow (Yellow) Urine Appearance Clear (Clear) Urine pH 5.5 (5.0-9.0) Ur Specific [place] 1.033 (1.001-1.035) Urine Protein 3+ H (Negative) mg/dL Urine Glucose (UA) Negative (Negative) mg/dL Urine Ketones 4+ H (Negative) mg/dL Ur Blood (Man) Negative (Negative) Urine Nitrate Negative (Negative) Urine Bilirubin 1+ H (Negative) Urine Urobilinogen 1.0 (<2.0) mg/dL Add Ur Microanalysis Reviewed Leukocyte Esterase Rfl Trace H (Negative) MARI/UL Urine RBC 3-5 H (0-2) /hpf Urine WBC 0-5 (0-3) /hpf Ur Squamous Epith Cells None seen (Few) /hpf Urine Bacteria None seen /hpf Urine Casts 0-2 Hyaline Casts 0-2 (None) /lpf Sperm Presence Present Urine Opiates Screen Negative (Negative) Urine Methadone Screen Negative (Negative) Ur Barbiturates Screen Negative (Negative) Ur Phencyclidine Scrn Negative (Negative) Ur Amphetamine Screen Negative (Negative) U Benzodiazepines Scrn Positive A (Negative) Urine Cocaine Screen Negative (Negative) U Cannabinoids Screen Positive A (Negative) Ethyl Alcohol < 10 (<10) mg/dL Imaging Data Radiologist's impression: ITS Impressions Head CT 01/07/25 17:23 IMPRESSION: 1. Normal brain. No acute intracranial process. ECG Data EKG #1: ECG completion date: 01/07/25 ECG completion time: 16:55 EKG Interpretation: normal rate (85), sinus rhythm, no ectopy, no ST changes, normal QRS and normal QT Discharge Plan Discharge Clinical Impression: Seizure Alcohol withdrawal Qualifiers: Complication of substance-induced condition: uncomplicated Qualified Code(s): F10.930 - Alcohol use, unspecified with withdrawal, uncomplicated Patient Disposition: Home Condition: Stable Instructions: Epilepsy (ED), Alcohol Withdrawal (ED) Patient Language: Urdu Prescriptions: No Action cephalexin 500 mg capsule 500 mg PO Q6H Qty: 28 0RF cephalexin 500 mg capsule 500 mg PO Q6H Qty: 28 0RF bacitracin 500 unit/gram ointment 1 applic topical Q8H Qty: 14 0RF acetaminophen 500 mg capsule 1,000 mg PO Q6H PRN (Reason: pain) Qty: 30 0RF ibuprofen 600 mg tablet 600 mg PO TID PRN (Reason: pain) Qty: 30 0RF Follow-up/Referrals: Hardy Enamorado MD [Physician, Family Practice] PHYSICIAN,DEPARTMENT ASSISTANT [Primary Care Provider, Internal Medicine] Time of Disposition: 20:29
== END 2025-01-07 20:38 | disposition home or self-care (01) ==
PROVIDERS: Emergency Provider Family Medicine
DX: R56.9 Unspecified convulsions (principal); F10.239 Alcohol dependence with withdrawal, unspecified; Z59.00 Homelessness unspecified; Z87.891 Personal history of nicotine dependence
CPT/HCPCS: 36415; 70450; 80048; 80053; 80307; 81001; 82077; 83605; 85025; 85610; 93005; 96361; 96374; 99284; A9270; J2060; J7030

== ENCOUNTER 2025-04-24 13:39 | Emergency (ER) | payer MEDICAID, SELFPAY ==
--- NOTE | 2025-04-24 13:40 | ED_ITS ---
HPI - Altered Mental Status General Chief Complaint: Altered Mental Status Stated Complaint: ALTERED LOC Time Seen by Provider: 04/24/25 13:40 Source: patient and EMS Mode of arrival: EMS Limitations: altered mental status, clinical condition and intoxication History of Present Illness HPI narrative: 29 YEARS OLD WHITE MALE CAME TO THE ED BY AMBULANCE. PATIENT WAS FOUND SLEEPING OUTSIDE AND BROUGHT TO THE ED. PATIENT UNABLE TO ANSWER QUESTIONS AND FALLS ASLEEP WHILE BEING TALK TO PATIENT REPORTS TAKING XANAX. Related Data Allergies Allergy/AdvReac Type Severity Reaction Status Date / Time No Known Allergies Allergy Verified 01/07/25 16:51 Review of Systems 2 Review of Systems: ROS unobtainable: Yes unobtainable due to mental status PMFSH Past Medical History Medical History Polysubstance use disorder IV drug abuse Anxiety Social History Social History Smoking status: Former smoker Alcohol intake: current Substance use type: opiates Other substance usage details: marga Gender identity (if verbalized by the patient): Male Exam 2 Narrative: GENERAL APPEARANCE: WELL-DEVELOPED, WELL-NOURISHED, LESS RESPONSIVE TO VERBAL COMMANDS SKIN: NORMAL COLOR HEAD: NORMOCEPHALIC, NONTRAUMATIC EYES: CLEAR CONJUNCTIVA, MIOSIS ENT: OROPHARYNX NORMAL, EARS NORMAL, NOSE NORMAL NECK: SUPPLE, NONTENDER CHEST AND RESPIRATORY: AIRWAY PATENT, NO RESPIRATORY DISTRESS, NO ACCESSORY MUSCLE USE HEART: REGULAR RATE/RHYTHM ABDOMEN: SOFT, NONTENDER, NO ORGANOMEGALY, QUIET BOWEL SOUNDS VASCULAR: NORMAL PERIPHERAL PULSES, NORMAL CAPILLARY REFILL. MUSCULOSKELETAL: NORMAL RANGE OF MOTION, NONTENDER BACK NEUROLOGIC: SLEEPY, SNORING, RESPONSIVE TO PAINFUL STIMULATION Course Vital Signs Vital signs: Vital Signs Pulse Rate 111 H 04/24/25 13:41 Respiratory Rate 22 H 04/24/25 13:41 Blood Pressure 133/113 H 04/24/25 13:41 Pulse Oximetry 92 04/24/25 13:41 Oxygen Delivery Room Air 04/24/25 13:41 Pulse Rate 106 H 04/24/25 14:15 Respiratory Rate 14 04/24/25 14:15 Blood Pressure 160/117 H 04/24/25 14:15 Pulse Oximetry 97 04/24/25 14:18 Oxygen Delivery Nasal Cannula 04/24/25 14:18 Oxygen Flow Rate 2 04/24/25 14:18 [facility] Narrative Medical decision making narrative: PATIENT CAME TO THE ED WITH LESS RESPONSIVENESS, PATIENT BECOME MORE AWAKE AFTER INTRANASAL NARCAN PATIENT KEPT PUSHING THE NURSES TO NOT HAVE MORE NARCAN. VITAL SIGNS SHOWING BLOOD PRESSURE 133/113, HEART RATE 111 OTHERWISE WITHIN NORMAL LIMIT PHYSICAL EXAMINATION SHOWING PATIENT RESPONSIVE TO PHYSICAL EXAMINATION BLOOD WORKUP TODAY INCLUDES CBC, CMP, CPK, ALCOHOL LEVEL, TYLENOL LEVEL, SALICYLATE LEVEL SHOWED POTASSIUM 3.1, TOTAL BILIRUBIN 1.7, AST 277, ALT 86, TOTAL CREATININE KINASE 439, OTHERWISE WITHIN NORMAL LIMITS URINE DRUG SCREEN POSITIVE FOR BENZO PATIENT DECLINED ANY FURTHER EVALUATION AND WOULD LIKE TO SIGN AMA BEFORE GETTING THE BLOOD WORKUP RESULT BACK. AT THE TIME OF SIGNING AMA PATIENT WAS AWAKE, ALERT, ORIENTED X4 ABLE TO STAND UP AND WALK STEADY WITHOUT ANY BALANCE ISSUES. . I DECLARE THAT I HAVE PERSONALLY EXPLAINED TO THE PATIENT THE RISKS AND CONSEQUENCES INVOLVED IN LEAVING THIS FACILITY AT THIS TIME. THE BENEFITS OF CONTINUED TREATMENT AND/OR HOSPITALIZATION. AND THE ALTERNATIVES. IF ANY. TO CONTINUED TREATMENT AND/OR HOSPITALIZATION. IF APPLICABLE.I HAVE NOT IDENTIFIED ANY PSYCHOSIS, DRUGS, MENTAL ILLNESS, OR MEDICAL ILLNESS THAT ALTERS DECISION- MAKING CAPACITY (REASONING ABILITIES ). Differential Diagnosis Differential Diagnosis: POST SUBSTANCE ABUSE, ALCOHOL INTOXICATION, ELECTROLYTE IMBALANCE, DEHYDRATION Lab Data [facility] Lab Attestation statement: I personally reviewed the patient's lab results. 04/24/25 14:20 04/24/25 14:20 Labs: Lab Results 04/24/25 04/24/25 Range/Units 14:20 14:26 WBC 6.2 (4.5-10.0) K/mm3 RBC 4.94 (4.6-6.20) M/mm3 Hgb 14.0 (14.0-18.0) g/dL Hct 41.3 L (42.0-52.0) % MCV 83.6 (80-100) fl MCH 28.3 (26-34) pg MCHC 33.9 (32-36) g/dl RDW 13.9 (11.5-14.5) % Plt Count 193 (150-375) k/mm3 MPV 9.5 (7.4-10.4) fl Immature Gran % (Auto) 0.3 (0-0.5) % Neut % (Auto) 50.9 (45.5-73.1) % Lymph % (Auto) 36.8 (18.3-44.2) % [place] % (Auto) 9.4 H (2.6-8.5) % Eos % (Auto) 0.8 (0-4.4) % Baso % (Auto) 1.8 H (0.2-1.2) % Lymph # (Auto) 2.27 (0.9-3.2) K/mm3 [place] # (Auto) 0.6 (0.1-0.6) K/mm3 Eos # (Auto) 0.1 (0-0.3) K/mm3 Baso # (Auto) 0.1 (0.0-0.1) K/mm3 Abs Immat Gran (auto) 0.02 (0.00-0.031) K/mm3 Absolute Neuts (auto) 3.1 (1.3-6.7) K/mm3 Absolute Nucleated RBC 0.000 (0.0-0.012) K/mm3 Nucleated RBC % 0.0 (0.0-0.2) % Sodium 139 (137-145) mmol/L Potassium 3.1 L (3.4-5.0) mmol/L Chloride 91 L (98-107) mmol/L Carbon Dioxide 37 H (22-30) mmol/L Anion Gap 11 (4-12) mmol/L BUN 9 D (9-20) mg/dL Creatinine 1.02 (0.7-1.3) mg/dL Estim Creat Clear Calc 108 ml/min Estimated GFR > 60 (59 - ) Glucose 112 H (65-110) mg/dL POC Capillary Glucose 115 H (65-105) mg/dl Calcium 9.0 (8.4-10.2) mg/dL Total Bilirubin 1.7 H (0.2-1.3) mg/dL AST 277 H (17-59) U/L ALT 86 H (6-50) U/L Alkaline Phosphatase 108 (38-126) U/L Total Creatine Kinase 439 H (55-170) U/L Total Protein 8.4 H (6.3-8.2) g/dL Albumin 4.8 (3.5-5.1) g/dL Urine Color Yellow (Yellow) Urine Appearance Clear (Clear) Urine pH 6.5 (5.0-9.0) Ur Specific [place] 1.008 (1.001-1.035) Urine Protein Negative (Negative) mg/dL Urine Glucose (UA) Negative (Negative) mg/dL Urine Ketones Negative (Negative) mg/dL Ur Blood (Man) Non-hemolyzed trace (Negative) Urine Nitrate Negative (Negative) Urine Bilirubin Negative (Negative) Urine Urobilinogen 1.0 (<2.0) mg/dL Add Ur Microanalysis Reviewed Leukocyte Esterase Rfl Negative (Negative) MARI/UL Urine RBC 3-5 H (0-2) /hpf Urine WBC 0-5 (0-3) /hpf Ur Squamous Epith Cells None seen (Few) /hpf Urine Bacteria None seen /hpf Urine Casts 0-2 Salicylates < 1.0 L (2-20) mg/dL Urine Opiates Screen Negative (Negative) Urine Methadone Screen Negative (Negative) Acetaminophen < 10 L (10-30) ug/mL Ur Barbiturates Screen Negative (Negative) Ur Phencyclidine Scrn Negative (Negative) Ur Amphetamine Screen Negative (Negative) U Benzodiazepines Scrn Positive A (Negative) Urine Cocaine Screen Negative (Negative) U Cannabinoids Screen Negative (Negative) Ethyl Alcohol 201 (<10) mg/dL Critical Care Time Critical Care Time Critical Care Time: No Discharge Plan Discharge Clinical Impression: Acute alteration in mental status, Benzodiazepine abuse Patient Disposition: Left Against Medical Advice Condition: Guarded Prognosis Patient Language: Ethiopian Prescriptions: No Action cephalexin 500 mg capsule 500 mg PO Q6H Qty: 28 0RF cephalexin 500 mg capsule 500 mg PO Q6H Qty: 28 0RF bacitracin 500 unit/gram ointment 1 applic topical Q8H Qty: 14 0RF acetaminophen 500 mg capsule 1,000 mg PO Q6H PRN (Reason: pain) Qty: 30 0RF ibuprofen 600 mg tablet 600 mg PO TID PRN (Reason: pain) Qty: 30 0RF Follow-up/Referrals: PHYSICIAN,MOISTURE TESTER [Non-Staff, Internal Medicine]
[2025-04-24 13:41] VITALS: BP 133/113; PULSE 111; RESP 22; O2SAT 92
--- NOTE | 2025-04-24 13:55 | PC.NURSE ---
Patient unable to stay awake and answer questions. Patient oxygen dropped to 70%. Patient given 4mg narcan per verbal order from Dr Ruelas
--- NOTE | 2025-04-24 13:57 | ECG_ITS ---
Test Date: 2025-04-24 14:28:49 Measurements Intervals [place] Rate: 89 P: 52 ID: [id number] QRS: 32 QRSD: 99 T: 33 QT: 353 QTc: 431 Interpretive Statements SINUS RHYTHM INCOMPLETE RIGHT BUNDLE BRANCH BLOCK BASELINE ARTIFACT- I, II, III, AVR, AVL, AVF, V3, V6 BORDERLINE ECG Compared to ECG 01/07/2025 16:55:46 No significant changes Electronically Signed On 04-24-2025 14:35:06 WHEEL FITTER by Tone Mishra D.O.
[2025-04-24 14:15] VITALS: BP 160/117; PULSE 106; RESP 14; O2SAT 96
[2025-04-24 14:16] VITALS: O2SAT 97
[2025-04-24 14:18] VITALS: O2SAT 97
--- NOTE | 2025-04-24 14:22 | PC.NURSE ---
Patient given 4mg of narcan again per verbal order from Dr Ruelas due to patient not being able to stay awake.
[2025-04-24 14:27] LABS: Hematocrit 41.3 % (42.0-52.0); Hemoglobin 14.0 g/dL (14.0-18.0); Immature Granulocyte Percent A 0.3 % (0-0.5); Lymphocytes Absolute Auto 2.27 K/mm3 (0.9-3.2); Mean Corpuscular HGB Conc 33.9 g/dl (32-36); Mean Corpuscular Hemoglobin 28.3 pg (26-34); Mean Corpuscular Volume 83.6 fl (80-100); Nucleated Red Blood Cells Absolute Auto 0.000 K/mm3 (0.0-0.012); Nucleated Red Blood Cells Perc 0.0 % (0.0-0.2); Platelet Count Result 193 k/mm3 (150-375); Red Blood Count 4.94 M/mm3 (4.6-6.20); White Blood Count 6.2 K/mm3 (4.5-10.0)
[2025-04-24] MEDS: NALOXONE HCL INJ 2 MG/2 ML AMP (14:35)
[2025-04-24] MEDS: NALOXONE HCL INJ 2 MG/2 ML AMP 6 MG IV PUSH (14:35)
[2025-04-24] MEDS: SODIUM CHLORIDE 0.9% IV 1,000 ML 999 ML IV CONT (14:38)
[2025-04-24 14:41] LABS: Add Urine Microscopic? NO; Appearance Urine Clear (Clear); Glucose Urine UA Negative (Negative); Leukocyte Esterase Ur Negative LEU/UL (Negative); Need Manual Microscopic Reviewed; Nitrate Urine Negative (Negative); Non Pathogenic Casts 0-2; Specific Grav Ur 1.008 (1.001-1.035)
[2025-04-24 14:48] LABS: Acetaminophen < 10 ug/mL (10-30); Salicylate < 1.0 mg/dL (2-20)
[2025-04-24 14:49] LABS: Alanine Aminotransferase 86 U/L (6-50); Albumin Level 4.8 g/dL (3.5-5.1); Alkaline Phosphatase 108 U/L (38-126); Aspartate Amino Transferase 277 U/L (17-59); Bilirubin,Total 1.7 mg/dL (0.2-1.3); Blood Urea Nitrogen 9 mg/dL (9-20); Calcium 9.0 mg/dL (8.4-10.2); Chloride 91 mmol/L (98-107); Creatine Kinase 439 U/L (55-170); Estimated CRCL calculation 108 ml/min; Estimated Glomerular Filt Rate > 60; Glucose 112 mg/dL (65-110); Potassium 3.1 mmol/L (3.4-5.0); Sodium 139 mmol/L (137-145); Total Protein 8.4 g/dL (6.3-8.2)
[2025-04-24 15:00] LABS: Anion Gap 11 mmol/L (4-12); Cannabinoid Screen Urine Negative (Negative); Carbon Dioxide 37 mmol/L (22-30)
== END 2025-04-24 17:48 | disposition left against medical advice (07) ==
PROVIDERS: Emergency Provider Emergency Medicine
DX: R41.82 Altered mental status, unspecified (principal); F13.10 Sedative, hypnotic or anxiolytic abuse, uncomplicated; F41.9 Anxiety disorder, unspecified; Z87.891 Personal history of nicotine dependence
CPT/HCPCS: 36415; 80053; 80143; 80179; 80307; 81003; 82077; 82550; 82948; 85025; 93005; 96361; 96374; 99284; J2312; J7030